=== PATIENT | male | born 1935 | race Caucasian/White ===

== ENCOUNTER 2017-10-03 23:14 | Observation (INO) | payer MEDICARE ==
[2017-10-03] MEDS ORDERED: NS 0.9% 1000 ML*IV.FLUID IV ONE (23:24)
[2017-10-03] MEDS ORDERED: Acetaminophen TAB* 325 MG PO ONE (23:24)
[2017-10-03] MEDS ORDERED: Piperacillin/Tazobac ADVAN(*) 3.375 GM in NS 0.9% 100 ML* 100 ML IVPB ONE (23:27)
[2017-10-03] MEDS ORDERED: Ibuprofen TAB* 800 MG PO ONE (23:35)
[2017-10-03 23:48] LABS: ABS Basophils 0 10^3/ul (0-0.2); ABS Eosinophils 0 10^3/ul (0-0.6); ABS Lymphocytes 0.8 10^3/ul (1.0-4.8); ABS Monocytes 1.1 10^3/ul (0-0.8); ABS Neutrophils 11.4 10^3/ul (1.5-7.7); ABS Nucleated RBC 0 10^3/ul; Eosinophil % 0.2 % (0-6); Hematocrit 42 % (42-52); Lymphocyte % 6.3 % (25-47); Mean Corpuscular HGB Conc 34 g/dl (31-36); Mean Corpuscular Hemoglobin 32 pg (27-31); Mean Corpuscular Volume 94 fL (80-94); Mean Platelet Volume 7.7 um3 (7.4-10.4); Nucleated Red Blood Cells % 0.1; Platelet Count 154 10^3/ul (150-450); Red Blood Count 4.42 10^6/ul (4.00-5.40); Red Cell Distribution Width 14 % (10.5-15); White Blood Count 13.4 10^3/ul (3.5-10.8)
[2017-10-04 00:03] LABS: EGFR Non-African American 75.9 (>60); INR 1.09 (0.77-1.02)
--- NOTE | 2017-10-04 00:14 | ED ---
HPI Febrile Illness - HPI Summary HPI Summary: This is scribe Anuel Johnston documenting for attending Dr. Gustabo Ramirez. This patient is an 82 year old M presenting to [facility] accompanied by his with a chief complaint of febrile illness since this AM but worse by 2200. PMHx dementia, all history obtained from his . Pt hasnt had fever up until he started experiencing the chills/shivering at 2200, when he lay in bed. Pt was lethargic all day, but this was not seen as too concerning early on, as some days he is more active than others. His blood pressure was checked by his and was okay, as was his temperature. She noted she forced fluids. When he went to bed at 2200 he was shaking all over, he did cough with a little rattle after it got bad. They endorse incontinence, chills/shivering, new onset fever, productive cough, bilateral pitting pedal edema, lethargy, and weakness (much worse after 2200). PMHx BPH, cellulitis, HTN, PE tubes, but denies PMHx other heart problems. They deny urinary retention, emesis, and loss of appetite. PMHx cellulitis. Pts endorses that she gave him 2 extra strength Tylenol (1000 mg) at 2200. I, Dr. Montejo personally performed the services described in this documentation as scribed in my presence and it is both accurate and complete. - History of Current Complaint Chief Complaint: EDFever Time Seen by Provider: 10/03/17 23:22 Hx Obtained From: Family/Cut In Station Operator - Onset/Duration: Started Hours Ago, Still Present, Worse Since - 2200 Timing: Constant, Lasting Hours Initial Severity: Mild Current Severity: Moderate Pain Intensity: 0 Pain Scale Used: 0-10 Numeric Aggravating Factors: Nothing Alleviating Factors: Nothing Associated Signs and Symptoms: Chills, Cough, Leg Swelling, Weakness, Other: - lethargy - Additional Pertinent History Primary Care Physician: [id number] - Allergy/Home Medications Allergies/Adverse Reactions: Allergies Allergy/AdvReac Type Severity Reaction Status Date / Time MS Donepezil [Donepezil] Allergy Rash Verified 11/02/13 08:40 MS Losartan [Losartan] Allergy Swelling Verified 08/31/15 11:46 Of Face,Lips,& Throat PMH/Surg Hx/FS Hx/Imm Hx Endocrine/Hematology History: Denies: Hx Diabetes, Hx Sickle Cell Disease, Hx Thyroid Disease Cardiovascular History: Reports: Hx Hypertension - ON MEDICATION TO CONTROL Respiratory History: Reports: Hx Seasonal Allergies Denies: Hx Asthma, Hx Chronic Obstructive Pulmonary Disease (COPD), Hx Pneumonia GI History: Reports: Hx Hiatal Hernia Denies: Hx Gastroesophageal Reflux Disease, Hx Ulcer History: Reports: Hx Benign Prostatic Hyperplasia Musculoskeletal History: Reports: Hx Arthritis - HANDS & LEGS Denies: Hx Osteoporosis Sensory History: Reports: Hx Contacts or Glasses, Hx Hearing Problem - Getting hearing aides in August, fluid in ears getting tubes placed Denies: Hx Cataracts, Hx Glaucoma, Hx Hearing Aid Opthamlomology History: Reports: Hx Contacts or Glasses Denies: Hx Cataracts, Hx Glaucoma Neurological History: Reports: Hx Dementia Psychiatric History: Denies: Hx Autism, Hx Schizophrenia - Cancer History Cancer Type, Location and Year: Melanoma on back 1989, 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 APPY A CHILD. UMBILICAL HERNIA- [facility] [place]. ARTHROSCOPIC LEFT KNEE--[facility] [place]. CYST REMOVED FROM LEFT TESTICLE 2002-[facility] [place]. RIGHT HEEL 2007 [facility] [place] Hx Anesthesia Reactions: No Infectious Disease History: No Infectious Disease History: Denies: Hx Hepatitis, Hx Human Immunodeficiency Virus (HIV), Traveled Outside the in Last 30 Days - Family History Known Family History: Positive: Hypertension, Other - lung cancer - Social History Occupation: Retired Lives: With Family - Alcohol Use: Daily Alcohol Amount: 2 shots of whiskey mixed with water Hx Substance Use: No Substance Use Type: Reports: None Hx Tobacco Use: Yes Smoking Status (MU): Former Smoker Type: Pipe Review of Systems Positive: Fever, Chills, Fatigue Positive: Cough Negative: Vomiting, Nausea Positive: incontinence. Negative: other - retention Positive: Edema - bilateral pedal pitting Positive: Other - flushed Positive: Weakness All Other Systems Reviewed And Are Negative: Yes Physical Exam - Summary Physical Exam Summary: VITAL SIGNS: Reviewed. GENERAL: Patient is a well-developed and nourished male who is lying comfortable in the stretcher. Patient is not in any acute respiratory distress. Flushed skin HEAD AND FACE: No signs of trauma. No ecchymosis, hematomas or skull depressions. No sinus tenderness. EYES: PERRLA, EOMI x 2, No injected conjunctiva, no nystagmus. EARS: Hearing grossly intact. Ear canals and tympanic membranes are within normal limits. MOUTH: Oropharynx within normal limits. NECK: Supple, trachea is midline, no adenopathy, no JVD, no carotid bruit, no c- spine tenderness, neck with full ROM. CHEST: Symmetric, no tenderness at palpation LUNGS: Clear to auscultation bilaterally. No wheezing or crackles. CVS: Regular rate and rhythm, S1 and S2 present, no murmurs or gallops appreciated. ABDOMEN: Soft, non-tender. Distended. No rebound, no guarding, and no masses palpated. Bowel sounds are normal. Ventral hernia EXTREMITIES: FROM in all major joints, trace bilateral pitting pedal edema, no cyanosis or clubbing. NEURO: Alert and oriented x 3. No acute neurological deficits. Speech is normal and follows commands. SKIN: Dry and warm, flushed Triage Information Reviewed: Yes Vital Signs On Initial Exam: Initial Vitals Temp Pulse Resp BP Pulse Ox 101.8 F 73 15 141/73 93 10/03/17 23:21 10/03/17 23:21 10/03/17 23:21 10/03/17 23:21 10/03/17 23:21 Vital Signs Reviewed: Yes Diagnostics - Vital Signs Vital Signs Temp Pulse Resp BP Pulse Ox 10/03/17 23:21 101.8 F 73 15 141/73 93 - Laboratory Lab Results: Lab Results 10/03/17 10/03/17 10/03/17 Range/Units 23:40 23:40 23:40 WBC 13.4 H (3.5-10.8) 10^3/ul RBC 4.42 (4.00-5.40) 10^6/ul Hgb 14.0 (14.0-18.0) g/dl Hct 42 (42-52) % MCV 94 (80-94) fL MCH 32 H (27-31) pg MCHC 34 (31-36) g/dl RDW 14 (10.5-15) % Plt Count 154 (150-450) 10^3/ul MPV 7.7 (7.4-10.4) um3 Neut % (Auto) 85.1 H (38-83) % Lymph % (Auto) 6.3 L (25-47) % [place] % (Auto) 8.1 H (0-7) % Eos % (Auto) 0.2 (0-6) % Baso % (Auto) 0.3 (0-2) % Absolute Neuts (auto) 11.4 H (1.5-7.7) 10^3/ul Absolute Lymphs (auto) 0.8 L (1.0-4.8) 10^3/ul Absolute Monos (auto) 1.1 H (0-0.8) 10^3/ul Absolute Eos (auto) 0 (0-0.6) 10^3/ul Absolute Basos (auto) 0 (0-0.2) 10^3/ul Absolute Nucleated RBC 0 10^3/ul Nucleated RBC % 0.1 INR (Anticoag Therapy) 1.09 H (0.77-1.02) APTT 27.6 (26.0-36.3) seconds Sodium 131 L (135-145) mmol/L Potassium 3.9 (3.5-5.0) mmol/L Chloride 101 (101-111) mmol/L Carbon Dioxide 24 (22-32) mmol/L Anion Gap 6 (2-11) mmol/L BUN 26 H (6-24) mg/dL Creatinine 0.95 (0.67-1.17) mg/dL Est GFR ( Amer) 91.8 (>60) Est GFR (Non-Af Amer) 75.9 (>60) BUN/Creatinine Ratio 27.4 H (8-20) Glucose 127 H (70-100) mg/dL Lactic Acid (0.5-2.0) mmol/L Calcium 9.2 (8.6-10.3) mg/dL Total Bilirubin 1.50 H (0.2-1.0) mg/dL AST 13 (13-39) U/L ALT 10 (7-52) U/L Alkaline Phosphatase 55 (34-104) U/L Troponin I 0.01 (<0.04) ng/mL C-Reactive Protein 150.51 H (<8.01) mg/L Total Protein 6.3 L (6.4-8.9) g/dL Albumin 3.7 (3.2-5.2) g/dL Globulin 2.6 (2-4) g/dL Albumin/Globulin Ratio 1.4 (1-3) / Range/Units 23:40 WBC (3.5-10.8) 10^3/ul RBC (4.00-5.40) 10^6/ul Hgb (14.0-18.0) g/dl Hct (42-52) % MCV (80-94) fL MCH (27-31) pg MCHC (31-36) g/dl RDW (10.5-15) % Plt Count (150-450) 10^3/ul MPV (7.4-10.4) um3 Neut % (Auto) (38-83) % Lymph % (Auto) (25-47) % [place] % (Auto) (0-7) % Eos % (Auto) (0-6) % Baso % (Auto) (0-2) % Absolute Neuts (auto) (1.5-7.7) 10^3/ul Absolute Lymphs (auto) (1.0-4.8) 10^3/ul Absolute Monos (auto) (0-0.8) 10^3/ul Absolute Eos (auto) (0-0.6) 10^3/ul Absolute Basos (auto) (0-0.2) 10^3/ul Absolute Nucleated RBC 10^3/ul Nucleated RBC % INR (Anticoag Therapy) (0.77-1.02) APTT (26.0-36.3) seconds Sodium (135-145) mmol/L Potassium (3.5-5.0) mmol/L Chloride (101-111) mmol/L Carbon Dioxide (22-32) mmol/L Anion Gap (2-11) mmol/L BUN (6-24) mg/dL Creatinine (0.67-1.17) mg/dL Est GFR ( Amer) (>60) Est GFR (Non-Af Amer) (>60) BUN/Creatinine Ratio (8-20) Glucose (70-100) mg/dL Lactic Acid 1.0 (0.5-2.0) mmol/L Calcium (8.6-10.3) mg/dL Total Bilirubin (0.2-1.0) mg/dL AST (13-39) U/L ALT (7-52) U/L Alkaline Phosphatase (34-104) U/L Troponin I (<0.04) ng/mL C-Reactive Protein (<8.01) mg/L Total Protein (6.4-8.9) g/dL Albumin (3.2-5.2) g/dL Globulin (2-4) g/dL Albumin/Globulin Ratio (1-3) Result Diagrams: 10/03/17 23:40 10/03/17 23:40 Lab Statement: Any lab studies that have been ordered have been reviewed, and results considered in the medical decision making process. - Radiology CXR Xray Interpretation: No Acute Changes Radiology Interpretation Completed By: ED Physician - No acute process. Course/Dx - Course Course Of Treatment: An 82-year-old M presents to the ED with a CC of febrile illness since this AM. (+) fever, chills, cough, lethargy, weakness. (-) urinary retention, emesis, loss of appetite. PMHx BPH, incontinence, HTN, cellulitis. A CXR reveals ___. An EKG reveals ___. In the ED course, pt was given . Pt was given 1000 mg of Tylenol by his at 2200. - Diagnoses Provider Diagnoses: UTI (urinary tract infection), Sepsis due to urinary tract infection - Provider Notifications Discussed Care Of Patient With: Lucinda Lizarraga Time Discussed With Above Provider: 01:00 Instructed by Provider To: Other - Accepts admission. Discharge - Sign-Out/Discharge Documenting (check all that apply): Patient Departure - admit - Discharge Plan Condition: Stable Disposition: ADMITTED TO [facility] Referrals: Adam Marte MD [Primary Care Provider] - - Billing Disposition and Condition Condition: STABLE Disposition: Admitted to [facility] Attestation Statement User Type: Provider - I, Dr. Montejo personally performed the services described in this documentation as scribed in my presence and it is both accurate and complete.
[2017-10-04 00:22] LABS: Urine Appearance Cloudy; Urine Blood Negative (Negative); Urine Color Yellow; Urine Ketones Negative (Negative); Urine Protein Negative (Negative); Urine Red Blood Cell Absent (Absent); Urine Specific Gravity 1.028 (1.010-1.030); Urine Urobilinogen Negative (Negative); Urine White Blood Cell 1+(6-10/hpf) (Absent)
[2017-10-04] MEDS ORDERED: Acetaminophen TAB* 325 MG PO PRN (01:28)
[2017-10-04] MEDS ORDERED: Senna TAB PO PRN (01:28)
[2017-10-04] MEDS ORDERED: Ondansetron INJ* 2 MG/ML VIAL IV PRN (01:28)
[2017-10-04] MEDS ORDERED: Docusate CAP* 100 MG PO PRN (01:28)
[2017-10-04] MEDS ORDERED: Al Hydrox/Mg Hydrox/Simet LIQ* 30 ML UDC PO PRN (01:28)
[2017-10-04] MEDS: NS 0.9% 1000 ML* 1,000 ML IV SCH ×2 (03:19→08:43)
[2017-10-04 03:30] LABS: ABS Basophils 0.1 10^3/ul (0-0.2); ABS Eosinophils 0 10^3/ul (0-0.6); ABS Lymphocytes 0.9 10^3/ul (1.0-4.8); ABS Monocytes 0.4 10^3/ul (0-0.8); ABS Neutrophils 9.7 10^3/ul (1.5-7.7); ABS Nucleated RBC 0 10^3/ul; Eosinophil % 0.1 % (0-6); Hematocrit 40 % (42-52); Hemoglobin 13.4 g/dl (14.0-18.0); Lymphocyte % 7.8 % (25-47); Mean Corpuscular HGB Conc 34 g/dl (31-36); Mean Corpuscular Hemoglobin 32 pg (27-31); Mean Corpuscular Volume 95 fL (80-94); Mean Platelet Volume 7.9 um3 (7.4-10.4); Nucleated Red Blood Cells % 0; Platelet Count 124 10^3/ul (150-450); Red Blood Count 4.18 10^6/ul (4.00-5.40); Red Cell Distribution Width 14 % (10.5-15); White Blood Count 11.1 10^3/ul (3.5-10.8)
[2017-10-04] MEDS: cefTRIAXone(*) 1 GM in NS 0.9% 50 ML* 50 ML IVPB SCH (05:49)
[2017-10-04] MEDS: Heparin VIAL(*) 5000 UNITS/ML VIAL (FIVE THOUSAND) SUBCUT SCH ×3 (05:51→21:39)
--- NOTE | 2017-10-04 07:15 | RAD ---
INDICATION: Fever. COMPARISON: Comparison is made with a prior chest x-ray study from August 13, 2015. TECHNIQUE: A portable view of the chest was obtained. FINDINGS: The heart appears moderately enlarged and unchanged from the prior exam. The lungs are clear. No pleural effusion is seen. IMPRESSION: NO EVIDENCE FOR ACUTE DISEASE. R0
[2017-10-04] MEDS: Aspirin EC TAB* 81 MG TAB.EC PO SCH (08:44)
--- NOTE | 2017-10-04 08:57 | HP ---
CC: Dr. Marte.* HISTORY AND PHYSICAL: DATE OF ADMISSION: 10/04/17 TIME OF EVALUATION: 0100 PRIMARY CARE PHYSICIAN: Dr. Marte. CHIEF COMPLAINT: Rigors, shaking. HISTORY OF PRESENT ILLNESS: This is an 82-year-old male with past medical history of [id number]-[id number] dementia who presented to the emergency room after having a shaking episode in bed. The gives history as the patient is somnolent and with dementia. She states he was in his usual state of health today, he ate 3 meals. He had had no symptoms. He was a little bit more lethargic throughout the day. This evening he went to bed around 9 p.m., at 10 p.m. she woke up, had him having rigors and he was found to have a temperature when he arrived to the emergency room. states he is not able to complain of pain or express his needs. She denies any vomiting or diarrhea. No coughing. No choking on foods. No sick contact. No recent antibiotic use. He has no recent weight changes. No URI symptoms. Otherwise, review of system is limited. The patient had labs imaging. He was given 3 L of normal saline, Zosyn , and Motrin and referred to the hospital service for further evaluation. PAST MEDICAL HISTORY: 1. Moderate to severe dementia. 2. BPH. 3. Hypertension. 4. History of hiatal hernia. 5. Arthritis. 6. Hard of hearing. MEDICATIONS: 1. Verapamil 360 mg p.o. daily. 2. Galantamine 24 mg p.o. daily. 3. Vitamin B12 1000 mcg p.o. daily. 4. Multivitamin daily. 5. Aspirin 81 mg daily. 6. Spironolactone 12.5 mg p.o. daily. ALLERGIES: DONEPEZIL, LOSARTAN. FAMILY HISTORY: Reviewed, noncontributory. SOCIAL HISTORY: The patient lives at home with his , Tucker, who takes care of him. He does ambulate independently. He is incontinent of urine. He has difficulty with meaningful conversation and unable to express his needs. He does drink 1 to 2 drinks per day about 5 to 6 times a week. He does have a remote smoking history. No illicit drug history. His healthcare proxy is his , Tucker. She had confirmed that he is a DNR/DNI. We will have this filled up this evening. REVIEW OF SYSTEMS: Limited due to patient's dementia and altered mental status. PHYSICAL EXAMINATION GENERAL: The patient is somnolent. He does awake, but minimally responsive as well as respirations. VITAL SIGNS: T-max 101.8, pulse rate 70, respiratory rate 15, oxygen saturation 93% on room air, blood pressure 112/89. HEENT: Head: Normocephalic. Pupils are equal and reactive, anicteric. Oropharynx: Mucous membranes moist. NECK: Supple. RESPIRATORY: Diminished breath sounds. No wheezing, rhonchi, or rales. CARDIAC: Regular rate and rhythm. Soft systolic murmur heard throughout. ABDOMEN: Positive bowel sounds. Soft, nontender, nondistended. EXTREMITIES: No clubbing, cyanosis, or edema. +1 DPs. NEUROLOGIC: The patient is nonverbal, unable to follow commands. He does have spontaneous movement of bilateral lower extremities. LABORATORY DATA: White count 13.4, hemoglobin 14, hematocrit 42, platelets 154 ,000. INR is 1.09. Sodium 131, potassium 3.9, chloride 101, bicarb 24, BUN 26 , creatinine 0.95, glucose 127, troponin 0.01, CRP is 150. Urine shows trace leukocytes white cells, squamous cells and positive bacteria. Chest x-rays were unremarkable. ASSESSMENT: This is an 82-year-old male with past medical history of dementia, benign prostatic hyperplasia who presents to the emergency room after having rigor and found to have fever. 1. Systemic inflammatory response syndrome. Assessment: The patient does meet criteria for systemic inflammatory response syndrome. It is possible the source is his urine shows mild pyuria, does not have any other associated symptoms. He is quite somnolent. Could be a viral illness. Plan: We will continue IV fluids, continue him on antibiotics. We will continue him on ceftriaxone. Follow up on his urine and blood cultures. If he does not clinically improve, would consider lumbar puncture to rule out meningitis. 2. Chronic medical problems, hypertension. The patient's blood pressures are soft, we will hold his verapamil and spironolactone. Continue his aspirin. 3. History of benign prostatic hyperplasia. We will order a bladder scan. He is not on any medications for this. 4. Dementia. Hold his galantamine as it is not on formulary. 5. FEN: Place the patient on a regular diet. 6. DVT prophylaxis: The patient scores high risk. We placed him on heparin subcu t.i.d. 7. Code status: The patient's confirmed that he has a DNR and DNI and we will have the MOLST form completed. TIME SPENT: Greater than 30 minutes was spent doing the history and physical, more than half the time spent in direct patient contact. [id number]/CPS #: [id number] DRAKE
[2017-10-04] MEDS: GALANTAMINE HBR 24 MG PO SCH (13:05)
[2017-10-04] MEDS: Verapamil SR CAP* 180 MG PO SCH (13:06)
[2017-10-04] MEDS: Cyanocobalamin TAB* 500 MCG PO SCH (13:10)
[2017-10-04] MEDS: Spironolactone TAB* 25 MG PO SCH (13:10)
--- NOTE | 2017-10-04 15:01 | PN ---
Subjective Date of Service: 10/04/17 Interval History: Pt has no complaints. Lethargy resolved. See in room with and son. apart for fever , lethargy and rigors-no other symptoms Objective Active Medications: Acetaminophen (Tylenol Tab*) 650 mg PO Q4H PRN PRN Reason: FEVER/PAIN Al Hydrox/Mg Hydrox/Simethicone (Maalox Plus*) 30 ml PO Q6H PRN PRN Reason: INDIGESTION Aspirin (Aspirin Ec Tab*) 81 mg PO DAILY [facility] Last Admin: 10/04/17 08:44 Dose: 81 mg Cyanocobalamin (Vitamin B12 Tab*) 1,000 mcg PO DAILY [facility] Last Admin: 10/04/17 13:10 Dose: 1,000 mcg Docusate Sodium (Colace Cap*) 100 mg PO BID PRN PRN Reason: CONSTIPATION Heparin Sodium (Porcine) (Heparin Vial(*)) 5,000 units SUBCUT Q8HR [facility] Last Admin: 10/04/17 13:11 Dose: 5,000 units Ceftriaxone Sodium 1 gm/ (Sodium Chloride) 50 mls @ 200 mls/hr IVPB Q24H [facility] Last Admin: 10/04/17 05:49 Dose: 200 mls/hr Pto: Nf Galantamine Hbr [Galantamine Er] 24 Mg 24 mg PO DAILY [facility] Last Admin: 10/04/17 13:05 Dose: 24 mg Ondansetron HCl (Zofran Inj*) 4 mg IV Q4H PRN PRN Reason: NAUSEA/VOMITING Senna (Senokot Tab*) 1 tab PO BID PRN PRN Reason: CONSTIPATION Spironolactone (Aldactone Tab*) 12.5 mg PO DAILY [facility] Last Admin: 10/04/17 13:10 Dose: 12.5 mg Verapamil HCl (Calan Sr Cap*) 360 mg PO DAILY [facility] Last Admin: 10/04/17 13:06 Dose: 360 mg Vital Signs - 8 hr 10/04/17 10/04/17 10/04/17 07:22 10:36 10:39 Temperature 97.8 F Pulse Rate 61 Respiratory 16 16 Rate Blood Pressure 127/69 (mmHg) O2 Sat by Pulse 99 99 Oximetry Oxygen Devices in Use Now: None Appearance: 82 yo m in nAD, aAOx2, cannot recall his age, remembers Eyes: No Scleral Icterus, PERRLA Ears/Nose/Mouth/Throat: NL Teeth, Lips, Gums, Mucous Membranes Moist Neck: NL Appearance and Movements; NL JVP, Trachea Midline Respiratory: Symmetrical Chest Expansion and Respiratory Effort, - - faint bibasiliar crackles Cardiovascular: NL Sounds; No Murmurs; No JVD, RRR Abdominal: No Hepatosplenomegaly, - - distended, soft, NT, BS+ Lymphatic: No Cervical Adenopathy Extremities: No Edema, No Clubbing, Cyanosis Skin: No Rash or Ulcers, No Nodules or Sclerosis Neurological: NL Muscle Strength and Tone Result Diagrams: 10/04/17 03:23 10/03/17 23:40 Additional Lab and Data: Lab Results 10/03/17 10/03/17 10/03/17 Range/Units 23:40 23:40 23:40 WBC 13.4 H (3.5-10.8) 10^3/ul RBC 4.42 (4.00-5.40) 10^6/ul Hgb 14.0 (14.0-18.0) g/dl Hct 42 (42-52) % MCV 94 (80-94) fL MCH 32 H (27-31) pg MCHC 34 (31-36) g/dl RDW 14 (10.5-15) % Plt Count 154 (150-450) 10^3/ul MPV 7.7 (7.4-10.4) um3 Neut % (Auto) 85.1 H (38-83) % Lymph % (Auto) 6.3 L (25-47) % [place] % (Auto) 8.1 H (0-7) % Eos % (Auto) 0.2 (0-6) % Baso % (Auto) 0.3 (0-2) % Absolute Neuts (auto) 11.4 H (1.5-7.7) 10^3/ul Absolute Lymphs (auto) 0.8 L (1.0-4.8) 10^3/ul Absolute Monos (auto) 1.1 H (0-0.8) 10^3/ul Absolute Eos (auto) 0 (0-0.6) 10^3/ul Absolute Basos (auto) 0 (0-0.2) 10^3/ul Absolute Nucleated RBC 0 10^3/ul Nucleated RBC % 0.1 INR (Anticoag Therapy) 1.09 H (0.77-1.02) APTT 27.6 (26.0-36.3) seconds Sodium 131 L (135-145) mmol/L Potassium 3.9 (3.5-5.0) mmol/L Chloride 101 (101-111) mmol/L Carbon Dioxide 24 (22-32) mmol/L Anion Gap 6 (2-11) mmol/L BUN 26 H (6-24) mg/dL Creatinine 0.95 (0.67-1.17) mg/dL Est GFR ( Amer) 91.8 (>60) Est GFR (Non-Af Amer) 75.9 (>60) BUN/Creatinine Ratio 27.4 H (8-20) Glucose 127 H (70-100) mg/dL Lactic Acid (0.5-2.0) mmol/L Calcium 9.2 (8.6-10.3) mg/dL Total Bilirubin 1.50 H (0.2-1.0) mg/dL AST 13 (13-39) U/L ALT 10 (7-52) U/L Alkaline Phosphatase 55 (34-104) U/L Troponin I 0.01 (<0.04) ng/mL C-Reactive Protein 150.51 H (<8.01) mg/L Total Protein 6.3 L (6.4-8.9) g/dL Albumin 3.7 (3.2-5.2) g/dL Globulin 2.6 (2-4) g/dL Albumin/Globulin Ratio 1.4 (1-3) 10/03/17 Range/Units 23:40 WBC (3.5-10.8) 10^3/ul RBC (4.00-5.40) 10^6/ul Hgb (14.0-18.0) g/dl Hct (42-52) % MCV (80-94) fL MCH (27-31) pg MCHC (31-36) g/dl RDW (10.5-15) % Plt Count (150-450) 10^3/ul MPV (7.4-10.4) um3 Neut % (Auto) (38-83) % Lymph % (Auto) (25-47) % [place] % (Auto) (0-7) % Eos % (Auto) (0-6) % Baso % (Auto) (0-2) % Absolute Neuts (auto) (1.5-7.7) 10^3/ul Absolute Lymphs (auto) (1.0-4.8) 10^3/ul Absolute Monos (auto) (0-0.8) 10^3/ul Absolute Eos (auto) (0-0.6) 10^3/ul Absolute Basos (auto) (0-0.2) 10^3/ul Absolute Nucleated RBC 10^3/ul Nucleated RBC % INR (Anticoag Therapy) (0.77-1.02) APTT (26.0-36.3) seconds Sodium (135-145) mmol/L Potassium (3.5-5.0) mmol/L Chloride (101-111) mmol/L Carbon Dioxide (22-32) mmol/L Anion Gap (2-11) mmol/L BUN (6-24) mg/dL Creatinine (0.67-1.17) mg/dL Est GFR ( Amer) (>60) Est GFR (Non-Af Amer) (>60) BUN/Creatinine Ratio (8-20) Glucose (70-100) mg/dL Lactic Acid 1.0 (0.5-2.0) mmol/L Calcium (8.6-10.3) mg/dL Total Bilirubin (0.2-1.0) mg/dL AST (13-39) U/L ALT (7-52) U/L Alkaline Phosphatase (34-104) U/L Troponin I (<0.04) ng/mL C-Reactive Protein (<8.01) mg/L Total Protein (6.4-8.9) g/dL Albumin (3.2-5.2) g/dL Globulin (2-4) g/dL Albumin/Globulin Ratio (1-3) Microbiology and Other Data: Microbiology 10/03/17 23:40 Aerobic Blood Culture - Final Blood Venous Not Reportable Anaerobic Blood Culture - Final Not Reportable 10/03/17 23:46 Aerobic Blood Culture - Final Blood Venous Not Reportable Anaerobic Blood Culture - Final Not Reportable Assess/Plan/Problems-Billing Assessment: 82 yo M with fever and rigors-no source of infection - Patient Problems (1) SIRS (systemic inflammatory response syndrome) Comment: so farno source of infection identified. Awaiting cx, cont empiric Ceftriaxone (2) Dementia Comment: Continue galantamine (3) Hypertension Comment: Continue Verapamil, aldactone (4) DVT prophylaxis Comment: HSQ Status and Disposition: inpatient
[2017-10-04] MEDS ORDERED: LORazepam TAB(*) 1 MG PO ONE (20:52)
[2017-10-05] MEDS: Heparin VIAL(*) 5000 UNITS/ML VIAL (FIVE THOUSAND) SUBCUT SCH (05:39)
[2017-10-05] MEDS: cefTRIAXone(*) 1 GM in NS 0.9% 50 ML* 50 ML IVPB SCH (05:39)
[2017-10-05 07:07] LABS: ABS Basophils 0 10^3/ul (0-0.2); ABS Eosinophils 0.1 10^3/ul (0-0.6); ABS Lymphocytes 1.2 10^3/ul (1.0-4.8); ABS Monocytes 0.8 10^3/ul (0-0.8); ABS Neutrophils 6.2 10^3/ul (1.5-7.7); ABS Nucleated RBC 0 10^3/ul; Eosinophil % 1.5 % (0-6); Hematocrit 38 % (42-52); Lymphocyte % 14.8 % (25-47); Mean Corpuscular HGB Conc 34 g/dl (31-36); Mean Corpuscular Hemoglobin 32 pg (27-31); Mean Corpuscular Volume 95 fL (80-94); Nucleated Red Blood Cells % 0; Platelet Count 132 10^3/ul (150-450); Red Blood Count 4.04 10^6/ul (4.00-5.40); Red Cell Distribution Width 14 % (10.5-15); White Blood Count 8.4 10^3/ul (3.5-10.8)
[2017-10-05 07:37] LABS: EGFR Non-African American 88.7 (>60)
[2017-10-05] MEDS: Verapamil SR CAP* 180 MG PO SCH (10:12)
[2017-10-05] MEDS: GALANTAMINE HBR 24 MG PO SCH (10:12)
[2017-10-05] MEDS: Cyanocobalamin TAB* 500 MCG PO SCH (10:12)
[2017-10-05] MEDS: Spironolactone TAB* 25 MG PO SCH (10:13)
[2017-10-05] MEDS: Aspirin EC TAB* 81 MG TAB.EC PO SCH (10:13)
[2017-10-05 12:17] VITALS: BP 144/59
--- NOTE | 2017-10-05 22:38 | DS ---
CC: Dr. Marte.* DISCHARGE SUMMARY: DATE OF ADMISSION: 10/04/17 DATE OF DISCHARGE: 10/05/17 PRIMARY CARE PROVIDER: Dr. Marte. DISCHARGE DIAGNOSES: 1. Systemic inflammatory response syndrome. 2. Possible urinary tract infection. SECONDARY DIAGNOSES: 1. History of dementia. 2. History of hypertension. 3. History of benign prostatic hyperplasia. MEDICATIONS AT DISCHARGE: Include: 1. Aspirin 81 mg daily. 2. Galantamine ER 24 mg daily. 3. Multivitamin 1 tablet daily. 4. Spironolactone 12.5 mg daily. 5. Verapamil SR 360 mg daily. 6. Vitamin B12 1000 mcg daily. 7. Cefdinir 300 mg p.o. b.i.d. for a total of 5 days and stop. LABORATORY DATA AND STUDIES PERFORMED DURING HOSPITAL STAY: Included: On 10/05/17, white blood cell count of 8.4, hemoglobin of 13.0, hematocrit of 38 , and platelets of 132. Sodium was 135, potassium 4.0, chloride 106, carbon dioxide 25, BUN 16, creatinine 0.83. The patient's C-reactive protein was 150 and 206 respectively. Urinalysis showed trace esterase, trace WBCs, +1 bacteria. Urine cultures are pending at the time of dictation. Blood cultures were obtained at admission and they were negative up to the time of discharge. Portable chest x-ray, impression, "no evidence of recurrent disease." HOSPITALIZATION COURSE: Courtney Wright is an 82-year-old male who is a poor historian due to his dementia who lives with his who is a registered nurse. The patient's noted that the patient had rigors on the night of . He also was more lethargic. He came into the hospital for evaluation. Here he was noted to be febrile with leukocytosis, meeting SIRS criteria without an obvious source of infection. The patient's urinalysis was questionable for infection and urine cultures were obtained and they are still pending at the time of this dictation. The patient was placed on empiric ceftriaxone treatment and his leukocytosis resolved. He had been afebrile for 24 hours and his mental status is up to baseline. He was slightly confused and agitated than last night, but today, once again he is back to his baseline. I discussed with patient's that the option is for the patient to stay another night to see if the urine cultures come back or to be empirically treated for possible UTI and be discharged home today. At this point, it seems more beneficial for the patient to go home due to his dementia, he does get sundowning every night. He is going to be discharged home with recommendation to follow up with his primary care provider in 7 days. PHYSICAL EXAM AT THE TIME OF DISCHARGE: Blood pressure 136/65, heart rate of 66 and regular, respiratory rate 19, oxygen saturation 95% on room air, temperature 97.4. General: The patient is a pleasant 82-year-old male who is in no acute distress. The patient is alert and oriented. He is oriented x2. He is able to tell me his date of , but not his age. He does not remember today's date, he is able to tell me the location. He is overall a poor historian. HEENT: Head: Atraumatic, normocephalic. Eyes: Pupils are equal, reactive to light and accommodation. Oropharynx is clear. Mucosa moist. Neck : Supple. No JVD. No bruits bilaterally. Cardiovascular: Regular rate and rhythm. No murmur. Respiratory: Clear to auscultation bilaterally. Abdomen: Soft, nontender, nondistended. Bowel sounds are present in all 4 quadrants. Extremities: There is trace bilateral pedal edema. Pulses are +2 bilaterally. There is no clubbing or cyanosis. Neuro Evaluation: Speech clear. Cranial nerves II through XII grossly intact. Motor strength is 5/5 bilaterally. Evaluation of the skin, no ecchymotic areas or rashes noted. The patient is going to be discharged home to follow up with his primary care provider as mentioned above. Please note that this is a short summary of the patient's hospitalization. Please refer to further medical records for details. TIME SPENT: Approximately 35 minutes was spent on the patient's discharge. [id number]/[facility] #: [id number] DRAKE
== END 2017-10-05 12:30 | disposition home or self-care (01) ==
LOC: ED 23:14 → MED 10-04 01:26 → INTOOBSV 10-04 01:26
PROVIDERS: ADMIT Pediatrics; ATTEND Internal Medicine
DX: R65.11 Systemic inflammatory response syndrome (SIRS) of non-infectious origin with acute organ dysfunction (principal); F03.90 Unspecified dementia, unspecified severity, without behavioral disturbance, psychotic disturbance, mood disturbance, and anxiety; Z86.79 Personal history of other diseases of the circulatory system; Z87.438 Personal history of other diseases of male genital organs; Z79.82 Long term (current) use of aspirin; R05 Cough; Z87.891 Personal history of nicotine dependence
CPT/HCPCS: 36415; 71045; 80048; 80053; 81003; 81015; 83605; 84484; 85025; 85610; 85730; 86140; 87040; 87077; 87086; 87186; 99285; A9270-GY; G0378; J0696; J1644; J2543

== ENCOUNTER 2018-11-07 21:08 | Inpatient (IN) | payer MEDICARE ==
--- NOTE | 2018-11-07 22:06 | ED ---
Upper Extremity Pain - HPI Summary HPI Summary: 83 year old M presenting to [facility] accompanied by daughter and with a chief complaint of right shoulder pain rated 3/10 in severity since getting up from his recliner, losing his balance while standing, and falling over on to his right side on the linoleum floor, hitting the right side of his head, nose, and right shoulder per this evening. reports epistaxis. denies LOC. states patient was able to ambulate after the fall. states she iced patient's right eye. Symptoms aggravated by nothing. Symptoms alleviated by nothing. states that patient has hx dementia. states that patient is not taking blood thinners. states that patient does not fall frequently. Medications reviewed. Allergies noted. - History of Current Complaint Chief Complaint: EDFall Stated Complaint: FALL/RT ARM INJURY PER Time Seen by Provider: 11/07/18 21:54 Hx Obtained From: Family/Conveyor Mechanic - Mechanism Of Injury: Other - getting up from his recliner, losing his balance while standing, and falling over on to his right side on the linoleum floor, hitting the right side of his head, nose, and right shoulder Onset/Duration: Started Hours Ago, Still Present Timing: Constant Severity Currently: Mild - 3/10 Pain Location: Shoulder - right Aggravating Factor(s): Nothing Alleviating Factor(s): Nothing Associated Signs & Symptoms: Positive: Negative - LOC, Other - epistaxis - Allergies/Home Medications Allergies/Adverse Reactions: Allergies Allergy/AdvReac Type Severity Reaction Status Date / Time donepezil Allergy Rash Verified 10/04/17 01:43 losartan Allergy Swelling Verified 10/04/17 01:43 Of Face,Lips,& Throat Home Medications: Home Medications Multivitamins/Minerals TAB* [Theragran/minerals TAB*] 1 tab PO DAILY 11/07/18 [ History Confirmed 11/07/18] Verapamil SR CAP* [Calan Sr CAP*] 360 mg PO EVERY OTHER DAY 11/07/18 [History Confirmed 11/07/18] PMH/Surg Hx/FS Hx/Imm Hx Endocrine/Hematology History: Denies: Hx Diabetes, Hx Sickle Cell Disease, Hx Thyroid Disease Cardiovascular History: Reports: Hx Hypertension - ON MEDICATION TO CONTROL Respiratory History: Reports: Hx Seasonal Allergies Denies: Hx Asthma, Hx Chronic Obstructive Pulmonary Disease (COPD), Hx Pneumonia GI History: Reports: Hx Hiatal Hernia Denies: Hx Gastroesophageal Reflux Disease, Hx Ulcer History: Reports: Hx Benign Prostatic Hyperplasia Musculoskeletal History: Reports: Hx Arthritis - HANDS & LEGS Denies: Hx Osteoporosis Sensory History: Reports: Hx Contacts or Glasses, Hx Hearing Problem Denies: Hx Cataracts, Hx Glaucoma, Hx Hearing Aid Opthamlomology History: Reports: Hx Contacts or Glasses Denies: Hx Cataracts, Hx Glaucoma Neurological History: Reports: Hx Dementia Psychiatric History: Denies: Hx Autism, Hx Schizophrenia - Cancer History Cancer Type, Location and Year: Melanoma on back 1989, 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 APPY A CHILD. UMBILICAL HERNIA- [facility]. ARTHROSCOPIC LEFT KNEE--[facility]. CYST REMOVED FROM LEFT TESTICLE 2002-[facility] RIGHT HEEL 2007 [facility] Hx Anesthesia Reactions: No Infectious Disease History: No Infectious Disease History: Denies: Hx Hepatitis, Hx Human Immunodeficiency Virus (HIV), Traveled Outside the [place] in Last 30 Days - Family History Known Family History: Positive: Hypertension, Other - lung cancer - Social History Alcohol Use: Rare Alcohol Amount: 2 shots of whiskey mixed with water Substance Use Type: Reports: None Hx Tobacco Use: Yes Smoking Status (MU): Former Smoker Type: Pipe Review of Systems Positive: Epistaxis Positive: Other - right shoulder pain Neurological: Negative - LOC All Other Systems Reviewed And Are Negative: Yes Physical Exam - Summary Physical Exam Summary: Constitutional: Well-developed, Well-nourished, Alert. (-) Distressed Skin: Warm, Dry HENT: Patient has hematoma to right forehead, nose is deviated to the left, no septal hematoma, dried blood in bilateral nares Eyes: Conjunctiva normal Neck: Musculoskeletal ROM normal neck. (-) JVD, (-) Stridor, (-) Tracheal deviation Cardio: Rhythm regular, rate normal, Heart sounds normal; Intact distal pulses; The pedal pulses are 2+ and symmetric. Radial pulses are 2+ and symmetric. (-) Murmur Pulmonary/Chest wall: Effort normal. (-) Respiratory distress, (-) Wheezes, (-) Rales Abd: Soft, (-) tenderness, (-) Distension, (-) Guarding, (-) Rebound Musculoskeletal: Right shoulder is swollen, tender, radial pulses 2+, patient is able to move his right hand Lymph: (-) Cervical adenopathy Neuro: Patient only says yes when asked any questions Psych: Mood and affect Normal GCS: 15 Triage Information Reviewed: Yes Vital Signs On Initial Exam: Initial Vitals Temp Pulse Resp BP Pulse Ox 97.5 F 49 18 139/89 97 11/07/18 21:09 11/07/18 21:09 11/07/18 21:09 11/07/18 21:09 11/07/18 21:09 Vital Signs Reviewed: Yes Diagnostics - Vital Signs Vital Signs Temp Pulse Resp BP Pulse Ox 11/07/18 21:09 97.5 F 49 18 139/89 97 - Laboratory Result Diagrams: 11/08/18 03:22 11/08/18 03:22 Lab Statement: Any lab studies that have been ordered have been reviewed, and results considered in the medical decision making process. - Radiology Right shoulder x-ray Radiology Interpretation Completed By: ED Physician Summary of Radiographic Findings: humeral head fracture. pending official report Right humerus x-ray Radiology Interpretation Completed By: ED Physician Summary of Radiographic Findings: humeral head fracture. pending official report - CT CT Brain CT Interpretation Completed By: Radiologist Summary of CT Findings: 1. Frontal subcutaneous contusion/hematoma. No traumatic intracranial abnormalities. 2. Age-related atrophy and mild chronic small vessel ischemic disease. CT Cervical spine CT Interpretation Completed By: Radiologist Summary of CT Findings: 1. No cervical spine traumatic abnormalities. 2. Mild multilevel cervical spondylopathy. ED physician has reviewed this report. CT Maxillofacial CT Interpretation Completed By: Radiologist Summary of CT Findings: Right frontal contusion/hematoma. No facial bone fractures. ED physician has reviewed this report. Course/Dx - Course Course Of Treatment: Patient is here after mechanical fall. Patient has swelling of the right shoulder with a suspected humerus fracture on x-ray. Patient had negative CT head, cervical spine, maxillofacial. Patient was at home with his elderly who cannot take care of him tonight. Patient is admitted for placement. Orthopedic surgery was called and made aware patient. - Diagnoses Provider Diagnoses: Fall, Dementia, Humerus fracture - Physician Notifications Discussed Care of Patient With: Gabriel Elizabeth Time Discussed With Above Provider: 00:40 Instructed by Provider To: Other - Dr. Elizabeth, orthopedics, recommends admission to the hospitalist. Spoke with Dr. Stauffer, hospitalist, at 01:00 who agrees to admit patient Discharge ED - Sign-Out/Discharge Documenting (check all that apply): Patient Departure - Admit Patient Received Moderate/Deep Sedation with Procedure: No - Discharge Plan Condition: Stable Disposition: ADMITTED TO [facility] - Billing Disposition and Condition Condition: STABLE Disposition: Admitted to [facility] - Attestation Statements Document Initiated by Fortinoibe: Yes Documenting Scribe: Paulina Liao Provider For Whom Norma is Documenting (Include Credential): Jluis Quispe MD Scribe Attestation: IPaulina, scribed for Jluis Quispe MD on 11/08/18 at 0351. Scribe Documentation Reviewed: Yes Provider Attestation: The documentation as recorded by the scribe, Paulina Liao accurately reflects the service I personally performed and the decisions made by me, Jluis Quispe MD Status of Scribe Document: Viewed
[2018-11-08] MEDS ORDERED: Acetaminophen TAB* 325 MG PO ONE (01:36)
[2018-11-08 03:44] LABS: Albumin 3.7 g/dL (3.2-5.2); CO2 Carbon Dioxide 23 mmol/L (22-32); Calcium 9.1 mg/dL (8.6-10.3); Chloride 104 mmol/L (101-111); Sodium 132 mmol/L (135-145)
[2018-11-08 03:47] LABS: Hematocrit 43 % (42-52); Hemoglobin 14.5 g/dL (14.0-18.0); Mean Corpuscular HGB Conc 33 g/dL (31-36); Mean Corpuscular Hemoglobin 32 pg (27-31); Mean Corpuscular Volume 95 fL (80-94); Red Blood Count 4.57 10^6 /uL (4.18-5.48); Red Cell Distribution Width 15 % (10-15)
[2018-11-08 03:50] LABS: ALT 12 U/L (7-52); Albumin/Globulin Ratio 1.5 (1-3); Alkaline Phosphatase 57 U/L (34-104); BUN/Creatinine Ratio 22.8 (8-20); Blood Urea Nitrogen 23 mg/dL (6-24); EGFR African American 85.4 (>60); EGFR Non-African American 70.5 (>60); Globulin 2.5 g/dL (2-4); Glucose 132 mg/dL (70-100); Total Protein 6.2 g/dL (6.4-8.9)
[2018-11-08 03:51] LABS: Anion Gap 5 mmol/L (2-11)
[2018-11-08 04:04] LABS: ABS Lymphocytes 1.5 10^3/ul (1.0-4.8); ABS Monocytes 0.8 10^3/ul (0-0.8); ABS Neutrophils 6.5 10^3/ul (1.5-7.7); Eosinophil % 0.6 %; Lymphocyte % 17.3 %; Platelet Count Platelets clumped. 10^3/uL (150-450); White Blood Count 8.9 10^3/uL (3.5-10.8)
[2018-11-08] MEDS: NS 0.9% 1000 ML** 1,000 ML IV SCH ×2 (04:35→20:11)
--- NOTE | 2018-11-08 05:41 | HP ---
CC: Dr. Karol Jorge; Dr. Gabriel Elizabeth * ADMISSION HISTORY AND PHYSICAL: DATE OF ADMISSION: 11/08/18 PRIMARY CARE PROVIDER: Karol Jorge MD. CHIEF COMPLAINT: Fall. HISTORY OF PRESENT ILLNESS: This is an 83-year-old male with a past medical history of advanced dementia, who is nonverbal for most part, history of BPH and now has urinary incontinence, history of hypertension, came in due to a fall. The patient was in usual state of health up until yesterday evening at 8 p.m. when he was trying to get out of his recliner and go to his bed, his straightened the recliner but when he got up, he lost his balance, he tried to brace his impact but unfortunately fell on his right side and had severe right shoulder pain and was brought into the ER. According to the , who was present at the bedside, there was never any loss of consciousness. The patient himself could not answer further questions as he is nonverbal and mostly said yes to almost every question asked. PAST MEDICAL HISTORY: As mentioned advanced dementia, benign prostatic hypertrophy with urinary incontinence, hypertension, history of hiatal hernia, arthritis, severely hard of hearing. PAST SURGICAL HISTORY: He has had appendectomy, umbilical hernia repair, left testicular cyst removal, right heel fracture in 2007 which was repaired. HOME MEDICATIONS: The patient is on: 1. Multivitamin. 2. Spironolactone 12.5 mg oral daily. 3. Vitamin B12 2000 mcg p.o. daily. 4. Verapamil 360 mg p.o. every other day. 5. Triamcinolone topical p.r.n. antifungal cream. 6. Terbinafine topical p.r.n. 7. Galantamine 24 mg oral daily. 8. Vitamin D 1000 mg oral daily. ALLERGIES: The patient is documented to have allergies to DONEPEZIL and LOSARTAN. FAMILY HISTORY: Noncontributory at the age of 83. SOCIAL HISTORY: Former smoker, quit many years ago. Lives with his who is his health care proxy. The patient already has DNR/DNI paper signed from previous admission which the says that he is still DNR/DNI. REVIEW OF SYSTEMS: Unable to obtain as the patient is nonverbal and demented. PHYSICAL EXAMINATION GENERAL: The patient is awake, unclear about his orientation as he kept saying yes to everything. VITAL SIGNS: BP was noted to be 118/63, heart rate 70, respiratory rate 19, saturating 94% on room air, temperature was documented 97.5. HEENT: Head and neck examination: The patient did have some redness in his nose and abrasion from the fall. He had some facial erythema. Pupils bilaterally reactive. Oral mucosa was dry. NECK: Supple. No jugular venous distention. LUNGS: Clear to auscultation bilaterally. No wheezes, rhonchi, or rales. HEART: S1, S2. Regular rate and rhythm. ABDOMEN: Obese with umbilical hernia with positive bowel sounds. EXTREMITIES: The patient did have swelling in the right shoulder, which was in a sling, and some tenderness around that same shoulder. Otherwise, no cyanosis or clubbing and no edema in the lower extremities. LABORATORY DATA: Labs are still pending. EKG showed first-degree AV block with sinus bradycardia at 31 beats per minute. When compared to his older EKG from April, he still had first-degree AV block even at that time with sinus bradyarrhythmia. CT brain showed frontal subcutaneous hematoma, no contusion, no traumatic intracranial abnormality. Age related atrophy and mild chronic small vessel ischemic changes. Cervical spine CT: No cervical spine traumatic abnormality. Multilevel spondylopathy was noted. Maxillofacial CT: Right frontal contusion/hematoma. No facial bone fractures were noted. Shoulder x-ray was read by the ER physician as right humeral neck fracture, official read by radiologist is still pending. IMPRESSION: This is an 83-year-old gentleman with advanced dementia, here with fall, noted to have right humeral neck fracture. Orthopedic was consulted by the ER physician who will evaluate the patient in the morning. ASSESSMENT AND PLAN: 1. Mechanical fall with right humeral neck fracture. We consult with Ortho regarding any surgical treatment. The patient may need rehabilitation; however , wants to take the patient home if she can but understands that if the patient is not very mobile, he might need some rehabilitation prior to going home. 2. History of hypertension. Restart home medications with holding parameters. 3. History of benign prostatic hypertrophy. 4. History of advanced dementia. 5. Prolonged PA interval. We will consider holding the verapamil for now. 6. DVT prophylaxis with subcu heparin. 7. Code status: The patient is DNR. is the health care proxy. [id number]/[facility] #: [id number] DRAKE
[2018-11-08 06:44] LABS: Platelet Count 184 10^3/uL (150-450)
[2018-11-08 06:56] LABS: Potassium Redraw 4.4 mmol/L (3.5-5.0)
[2018-11-08] MEDS ORDERED: GALANTAMINE 8 MG PO SCH (09:00)
[2018-11-08] MEDS ORDERED: Ketorolac INJ* 15 MG/ML 1 ML VIAL IV PUSH ONE ×2 (09:53→19:42)
[2018-11-08] MEDS: Heparin VIAL(*) 5000 UNITS/ML VIAL (FIVE THOUSAND) SUBCUT SCH ×2 (09:56→20:10)
--- NOTE | 2018-11-08 10:13 | PN ---
Progress Note - Progress Note Date of Service: 11/08/18 Note: See full dictated report for complete details. Xrays reviewed with Dr Elizabeth, nonsurgical humerus fracture and much of this injury may be chronic rather than acute. Okay to be NWB, no shoulder ROM in a sling. Okay to move elbow, wrist and digits as tolerated. Mobilize as tolerated. May resume his regular diet.
[2018-11-08] MEDS: Cyanocobalamin TAB* 500 MCG PO SCH (11:21)
[2018-11-08] MEDS: Multivitamins/Minerals TAB PO SCH (11:21)
[2018-11-08] MEDS: Spironolactone TAB* 25 MG PO SCH (11:22)
[2018-11-08] MEDS: Cholecalciferol TAB* 1000 UNITS PO SCH (11:23)
--- NOTE | 2018-11-08 11:48 | CONS ---
CONSULTATION REPORT: DATE OF CONSULT: 11/08/18 ATTENDING ORTHOPEDIC PROVIDER: Dr. Gabriel Elizabeth. PRIMARY CARE PROVIDER: Karol Jorge MD CHIEF COMPLAINT: Fall with right humerus fracture. HISTORY OF PRESENT ILLNESS: The patient is an 83-year-old male with past medical history of advanced dementia, who is mostly nonverbal. He has history of BPH with urinary incontinence, history of hypertension. The patient suffered a fall when he was trying to get out of his recliner to bed yesterday on 11/07/18 around 8 p.m. The patient fell directly on to his right side. He had immediate severe right shoulder pain and was brought into the emergency room. He did hit his head, there was no loss of consciousness. The patient answers yes to all questions. His and daughter were in the room today to help with history. PAST MEDICAL HISTORY: Advanced dementia, BPH, hypertension, hiatal hernia, hard of hearing. PAST SURGICAL HISTORY: Appendectomy, umbilical hernia repair, left testicular cyst removal, right heel fracture. HOME MEDICATIONS: 1. Multivitamin. 2. Spironolactone 12.5 mg daily. 3. Vitamin B12 2000 mcg daily. 4. Verapamil 360 mg every other day. 5. Triamcinolone topical p.r.n. antifungal cream. 6. Terbinafine topical p.r.n. 7. Galantamine 24 mg daily. 8. Vitamin D3 1000 mg daily. ALLERGIES: DONEPEZIL and LOSARTAN. FAMILY HISTORY: Noncontributory for this condition. SOCIAL HISTORY: The patient lives with his who takes care of him at home. He also has respite day care service 2 days a week from the [place]. REVIEW OF SYSTEMS: Not obtained as the patient answers yes to all questions. PHYSICAL EXAM: Vital Signs: Temperature 97.6, pulse rate 72, respiratory rate 18, oxygen saturation 96%, blood pressure 127/60. General: The patient appears well, he is in no acute distress. HEENT: Nose has some erythema. Right forehead with some ecchymosis. Lungs: Normal rate and effort of breathing. Abdomen: Nondistended, nontender. Extremities: Right upper extremity tender to palpation of the right proximal humerus with some mild edema , nontender otherwise throughout the right upper extremity. Skin envelope is intact. Able to flex and extend his elbow, wrist and digits without any pain. Capillary refill less than 2 seconds distally. The patient does not answer questions regarding sensation. Left upper extremity and bilateral lower extremities skin envelope intact, nontender to palpation, able to flex and extend all joints without pain. Bilateral hips without pain with log roll. Right upper extremity: The patient is already wearing a sling. DIAGNOSTIC STUDIES/LAB DATA: Right humerus x-ray, humeral head fracture. Right shoulder x-ray, again showing right humeral head fracture. ASSESSMENT: Right humeral head fracture, some of this injury may be chronic rather than acute in nature. PLAN: The patient will be nonweightbearing of the right upper extremity. No range of motion of the shoulder. He should continue wearing a sling. He may range the elbow, wrist and digits as tolerated. He may remove the sling for hygiene. He should follow up in our office in [address] Elizabeth and x- rays were reviewed with Dr. Elizabeth, he agrees with this assessment and plan. MARIIA LITTLE [id number]/[facility] #: [id number] DRAKE
[2018-11-08] MEDS: Verapamil SR CAP* 180 MG PO SCH (12:05)
[2018-11-08] MEDS: GALANTAMINE 24 MG PO SCH (15:13)
--- NOTE | 2018-11-08 17:03 | PN ---
Subjective Date of Service: 11/08/18 Interval History: Denies any complaints.Has advanced dementia.Discussed with at bedside as well Objective Active Medications: Acetaminophen (Tylenol Tab*) 650 mg PO Q4H PRN PRN Reason: PAIN - MODERATE Cholecalciferol (Vitamin D Tab*) 1,000 units PO DAILY [facility] Last Admin: 11/08/18 11:23 Dose: 1,000 units Cyanocobalamin (Vitamin B12 Tab*) 2,000 mcg PO DAILY [facility] Last Admin: 11/08/18 11:21 Dose: 2,000 mcg Heparin Sodium (Porcine) (Heparin Vial(*)) 5,000 units SUBCUT Q12HR [facility] Last Admin: 11/08/18 09:56 Dose: 5,000 units Sodium Chloride (Ns 0.9% 1000 Ml) 1,000 mls @ 100 mls/hr IV PER RATE [facility] Last Admin: 11/08/18 04:35 Dose: 100 mls/hr Multivitamins/Minerals (Theragran/Minerals Tab*) 1 tab PO DAILY [facility] Last Admin: 11/08/18 11:21 Dose: 1 tab Pto Nf Med* Galantamine Er 24mg Tab 1 dose PO DAILY [facility] Last Admin: 11/08/18 15:13 Dose: Not Given Spironolactone (Aldactone Tab*) 12.5 mg PO DAILY [facility] Last Admin: 11/08/18 11:22 Dose: 12.5 mg Verapamil HCl (Calan Sr Cap*) 180 mg PO DAILY [facility] Last Admin: 11/08/18 12:05 Dose: 180 mg Vital Signs - 8 hr 11/08/18 11:15 Temperature 98.5 F Pulse Rate 80 Respiratory 20 Rate Blood Pressure 138/77 (mmHg) O2 Sat by Pulse 99 Oximetry Oxygen Devices in Use Now: None Eyes: No Scleral Icterus Neck: NL Appearance and Movements; NL JVP Respiratory: Symmetrical Chest Expansion and Respiratory Effort Cardiovascular: NL Sounds; No Murmurs; No JVD Abdominal: NL Sounds; No Tenderness; No Distention Extremities: - - wearing a sling Neurological: Alert and Oriented x 3, - - alert.not responding to questions in detail Result Diagrams: 11/08/18 06:19 11/08/18 06:19 Assess/Plan/Problems-Billing Assessment: - Patient Problems (1) Humerus fracture Current Visit: Yes Status: Acute Code(s): S42.309A - UNSP FRACTURE OF SHAFT OF HUMERUS, UNSP ARM, INIT SNOMED Code(s): 71220362 Comment: s/p fall no LOC seen by ortho conservative management sling pain control pt eval when able (2) BPH (benign prostatic hyperplasia) Current Visit: No Status: Chronic Priority: Medium Code(s): N40.0 - BENIGN PROSTATIC HYPERPLASIA WITHOUT LOWER URINRY TRACT SYMP SNOMED Code(s): 401299524 Comment: Continue finasteride (3) Hypertension Current Visit: No Status: Chronic Priority: Medium Code(s): I10 - ESSENTIAL (PRIMARY) HYPERTENSION SNOMED Code(s): 55862443 Comment: Continue Verapamil, aldactone
[2018-11-08] MEDS: Acetaminophen TAB* 325 MG PO PRN (17:30)
[2018-11-09 06:17] LABS: ABS Eosinophils 0.1 10^3/ul (0-0.6); ABS Lymphocytes 1.6 10^3/ul (1.0-4.8); ABS Monocytes 0.8 10^3/ul (0-0.8); ABS Neutrophils 4.3 10^3/ul (1.5-7.7); Hematocrit 38 % (42-52); Hemoglobin 12.8 g/dL (14.0-18.0); Lymphocyte % 22.6 %; Mean Corpuscular HGB Conc 34 g/dL (31-36); Mean Corpuscular Hemoglobin 32 pg (27-31); Mean Corpuscular Volume 95 fL (80-94); Nucleated Red Blood Cells % 0.1; Red Blood Count 3.99 10^6 /uL (4.18-5.48); Red Cell Distribution Width 15 % (10-15); White Blood Count 6.9 10^3/uL (3.5-10.8)
[2018-11-09 06:18] LABS: BUN/Creatinine Ratio 18.9 (8-20); Calcium 8.7 mg/dL (8.6-10.3); EGFR African American 91.6 (>60); EGFR Non-African American 75.7 (>60)
[2018-11-09 06:54] LABS: Potassium 4.6 mmol/L (3.5-5.0)
[2018-11-09 07:09] LABS: Platelet Count Platelets clumped. 10^3/uL (150-450)
[2018-11-09] MEDS: GALANTAMINE 24 MG PO SCH (08:01)
[2018-11-09] MEDS: NS 0.9% 1000 ML** 1,000 ML IV SCH (08:01)
[2018-11-09] MEDS: Spironolactone TAB* 25 MG PO SCH (08:02)
[2018-11-09] MEDS: Verapamil SR CAP* 180 MG PO SCH (08:02)
[2018-11-09] MEDS: Multivitamins/Minerals TAB PO SCH (08:02)
[2018-11-09] MEDS: Cholecalciferol TAB* 1000 UNITS PO SCH (08:02)
[2018-11-09] MEDS: Cyanocobalamin TAB* 500 MCG PO SCH (08:03)
[2018-11-09] MEDS: Heparin VIAL(*) 5000 UNITS/ML VIAL (FIVE THOUSAND) SUBCUT SCH ×2 (08:03→22:02)
[2018-11-09] MEDS: Acetaminophen TAB* 325 MG PO PRN (14:16)
[2018-11-09] MEDS ORDERED: Oxybutynin TAB* 5 MG PO PRN (15:28)
--- NOTE | 2018-11-09 15:28 | PN ---
Subjective Date of Service: 11/09/18 Interval History: denies any complaints.h/o underlying dementia and unable to express pain.bp increases with pain Objective Active Medications: Acetaminophen (Tylenol Tab*) 650 mg PO Q4H PRN PRN Reason: PAIN - MODERATE Last Admin: 11/09/18 14:16 Dose: 650 mg Cholecalciferol (Vitamin D Tab*) 1,000 units PO DAILY [facility] Last Admin: 11/09/18 08:02 Dose: 1,000 units Cyanocobalamin (Vitamin B12 Tab*) 2,000 mcg PO DAILY [facility] Last Admin: 11/09/18 08:03 Dose: Not Given Heparin Sodium (Porcine) (Heparin Vial(*)) 5,000 units SUBCUT Q12HR [facility] Last Admin: 11/09/18 08:03 Dose: 5,000 units Sodium Chloride (Ns 0.9% 1000 Ml) 1,000 mls @ 100 mls/hr IV PER RATE [facility] Last Admin: 11/09/18 08:01 Dose: 100 mls/hr Multivitamins/Minerals (Theragran/Minerals Tab*) 1 tab PO DAILY [facility] Last Admin: 11/09/18 08:02 Dose: 1 tab Pto Nf Med* Galantamine Er 24mg Tab 1 dose PO DAILY [facility] Last Admin: 11/09/18 08:01 Dose: 1 dose Spironolactone (Aldactone Tab*) 12.5 mg PO DAILY [facility] Last Admin: 11/09/18 08:02 Dose: 12.5 mg Verapamil HCl (Calan Sr Cap*) 180 mg PO DAILY [facility] Last Admin: 11/09/18 08:02 Dose: 180 mg Vital Signs - 8 hr 11/09/18 11/09/18 08:41 11:15 Temperature 98.0 F Pulse Rate 73 Respiratory 18 16 Rate Blood Pressure 142/63 (mmHg) O2 Sat by Pulse 96 Oximetry Oxygen Devices in Use Now: None Eyes: No Scleral Icterus Ears/Nose/Mouth/Throat: NL Teeth, Lips, Gums Neck: NL Appearance and Movements; NL JVP Respiratory: Symmetrical Chest Expansion and Respiratory Effort Cardiovascular: NL Sounds; No Murmurs; No JVD Abdominal: NL Sounds; No Tenderness; No Distention Extremities: - - in sling Skin: No Rash or Ulcers Neurological: Alert and Oriented x 3 Result Diagrams: 11/09/18 05:32 11/09/18 05:32 Assess/Plan/Problems-Billing Assessment: - Patient Problems (1) Humerus fracture Current Visit: Yes Status: Acute Code(s): S42.309A - UNSP FRACTURE OF SHAFT OF HUMERUS, UNSP ARM, INIT SNOMED Code(s): 83715076 Comment: s/p fall no LOC seen by ortho conservative management sling pain control pt ot (2) BPH (benign prostatic hyperplasia) Current Visit: No Status: Chronic Priority: Medium Code(s): N40.0 - BENIGN PROSTATIC HYPERPLASIA WITHOUT LOWER URINRY TRACT SYMP SNOMED Code(s): 628222880 Comment: Continue finasteride (3) Hypertension Current Visit: No Status: Chronic Priority: Medium Code(s): I10 - ESSENTIAL (PRIMARY) HYPERTENSION SNOMED Code(s): 10659705 Comment: Continue Verapamil, aldactone Adjusting Verapamil dose. Prev on 360 mg every other day before that 180 mg once a day will adjust dose based on response (4) Pain Current Visit: Yes Status: Acute Code(s): R52 - PAIN, UNSPECIFIED SNOMED Code(s): 26974262 Comment: Does not verbally express pain and he only nods and does not have a conversation at baseline BP increases suggesting pain Will keep him comfortable Already needed sig help at home and was helping with ADLS now with broken humeus, harder to be independant
[2018-11-09] MEDS ORDERED: oxyCODONE TAB* 5 MG TAB PO PRN (15:29)
[2018-11-10 06:59] LABS: ABS Eosinophils 0.1 10^3/ul (0-0.6); ABS Lymphocytes 1.6 10^3/ul (1.0-4.8); ABS Monocytes 0.9 10^3/ul (0-0.8); ABS Neutrophils 5.1 10^3/ul (1.5-7.7); Eosinophil % 1.5 %; Hematocrit 38 % (42-52); Hemoglobin 13.3 g/dL (14.0-18.0); Lymphocyte % 20.8 %; Mean Corpuscular HGB Conc 35 g/dL (31-36); Mean Corpuscular Hemoglobin 33 pg (27-31); Mean Corpuscular Volume 94 fL (80-94); Mean Platelet Volume 7.7 fL (7.4-10.4); Nucleated Red Blood Cells % 0.1; Platelet Count 168 10^3/uL (150-450); Red Blood Count 4.05 10^6 /uL (4.18-5.48); Red Cell Distribution Width 14 % (10-15); White Blood Count 7.8 10^3/uL (3.5-10.8)
[2018-11-10 07:08] LABS: BUN/Creatinine Ratio 16.5 (8-20); Calcium 8.9 mg/dL (8.6-10.3); EGFR African American 104.2 (>60); EGFR Non-African American 86.1 (>60); Potassium 4.2 mmol/L (3.5-5.0)
--- NOTE | 2018-11-10 09:39 | PN ---
Subjective Date of Service: 11/10/18 Interval History: Denies any complaints. Has baseline dementia Objective Active Medications: Acetaminophen (Tylenol Tab*) 650 mg PO Q4H PRN PRN Reason: PAIN - MODERATE Last Admin: 11/09/18 14:16 Dose: 650 mg Cholecalciferol (Vitamin D Tab*) 1,000 units PO DAILY [facility] Last Admin: 11/09/18 08:02 Dose: 1,000 units Cyanocobalamin (Vitamin B12 Tab*) 2,000 mcg PO DAILY [facility] Last Admin: 11/09/18 08:03 Dose: Not Given Heparin Sodium (Porcine) (Heparin Vial(*)) 5,000 units SUBCUT Q12HR [facility] Last Admin: 11/09/18 22:02 Dose: 5,000 units Multivitamins/Minerals (Theragran/Minerals Tab*) 1 tab PO DAILY [facility] Last Admin: 11/09/18 08:02 Dose: 1 tab Pto Nf Med* Galantamine Er 24mg Tab 1 dose PO DAILY [facility] Last Admin: 11/09/18 08:01 Dose: 1 dose Oxycodone HCl (Roxycodone Tab*) 5 mg PO Q6H PRN PRN Reason: PAIN - SEVERE Spironolactone (Aldactone Tab*) 12.5 mg PO DAILY [facility] Last Admin: 11/09/18 08:02 Dose: 12.5 mg Verapamil HCl (Calan Sr Cap*) 180 mg PO DAILY [facility] Last Admin: 11/09/18 08:02 Dose: 180 mg Vital Signs - 8 hr 11/10/18 04:04 Temperature 98.3 F Pulse Rate 93 Respiratory 18 Rate Blood Pressure 151/74 (mmHg) O2 Sat by Pulse 91 Oximetry Oxygen Devices in Use Now: None Eyes: No Scleral Icterus Ears/Nose/Mouth/Throat: NL Teeth, Lips, Gums Neck: NL Appearance and Movements; NL JVP Respiratory: Symmetrical Chest Expansion and Respiratory Effort Cardiovascular: NL Sounds; No Murmurs; No JVD Abdominal: NL Sounds; No Tenderness; No Distention Extremities: - - sling in place Neurological: Alert and Oriented x 3 Result Diagrams: 11/10/18 06:36 11/10/18 06:36 Assess/Plan/Problems-Billing Assessment: - Patient Problems (1) Humerus fracture Current Visit: Yes Status: Acute Code(s): S42.309A - UNSP FRACTURE OF SHAFT OF HUMERUS, UNSP ARM, INIT SNOMED Code(s): 87236332 Comment: s/p fall no LOC seen by ortho conservative management sling pain control pt ot rehab evaluation in progress (2) BPH (benign prostatic hyperplasia) Current Visit: No Status: Chronic Priority: Medium Code(s): N40.0 - BENIGN PROSTATIC HYPERPLASIA WITHOUT LOWER URINRY TRACT SYMP SNOMED Code(s): 686169370 Comment: Continue finasteride (3) Hypertension Current Visit: No Status: Chronic Priority: Medium Code(s): I10 - ESSENTIAL (PRIMARY) HYPERTENSION SNOMED Code(s): 89023792 Comment: Continue Verapamil, aldactone Adjusting Verapamil dose. Prev on 360 mg every other day before that 180 mg once a day will adjust dose based on response (4) Pain Current Visit: Yes Status: Acute Code(s): R52 - PAIN, UNSPECIFIED SNOMED Code(s): 59546751 Comment: Does not verbally express pain and he only nods and does not have a conversation at baseline BP increases suggesting pain Will keep him comfortable Already needed sig help at home and was helping with ADLS now with broken humeus, harder to be independant
[2018-11-10] MEDS: GALANTAMINE 24 MG PO SCH (09:58)
[2018-11-10] MEDS: Cholecalciferol TAB* 1000 UNITS PO SCH (09:58)
[2018-11-10] MEDS: Multivitamins/Minerals TAB PO SCH (09:58)
[2018-11-10] MEDS: Heparin VIAL(*) 5000 UNITS/ML VIAL (FIVE THOUSAND) SUBCUT SCH ×2 (09:58→20:49)
[2018-11-10] MEDS: Spironolactone TAB* 25 MG PO SCH (09:58)
[2018-11-10] MEDS: Cyanocobalamin TAB* 500 MCG PO SCH (09:58)
[2018-11-10] MEDS: Verapamil SR CAP* 180 MG PO SCH (09:59)
[2018-11-10] MEDS: Acetaminophen TAB* 325 MG PO PRN ×2 (10:27→18:03)
[2018-11-11 07:42] LABS: ABS Eosinophils 0.2 10^3/ul (0-0.6); ABS Lymphocytes 1.5 10^3/ul (1.0-4.8); ABS Monocytes 0.8 10^3/ul (0-0.8); ABS Neutrophils 4.6 10^3/ul (1.5-7.7); Eosinophil % 3.4 %; Hematocrit 36 % (42-52); Hemoglobin 12.4 g/dL (14.0-18.0); Lymphocyte % 21.4 %; Mean Corpuscular HGB Conc 35 g/dL (31-36); Mean Corpuscular Hemoglobin 33 pg (27-31); Mean Corpuscular Volume 95 fL (80-94); Mean Platelet Volume 7.6 fL (7.4-10.4); Nucleated Red Blood Cells % 0.1; Platelet Count 164 10^3/uL (150-450); Red Blood Count 3.79 10^6 /uL (4.18-5.48); Red Cell Distribution Width 15 % (10-15); White Blood Count 7.2 10^3/uL (3.5-10.8)
[2018-11-11 07:58] LABS: BUN/Creatinine Ratio 21.3 (8-20); Calcium 8.9 mg/dL (8.6-10.3); EGFR African American 98.8 (>60); EGFR Non-African American 81.6 (>60); Potassium 4.2 mmol/L (3.5-5.0)
[2018-11-11] MEDS: Heparin VIAL(*) 5000 UNITS/ML VIAL (FIVE THOUSAND) SUBCUT SCH ×2 (09:07→20:54)
[2018-11-11] MEDS: Cyanocobalamin TAB* 500 MCG PO SCH (09:07)
[2018-11-11] MEDS: Spironolactone TAB* 25 MG PO SCH (09:07)
[2018-11-11] MEDS: Cholecalciferol TAB* 1000 UNITS PO SCH (09:07)
[2018-11-11] MEDS: Verapamil SR CAP* 180 MG PO SCH (09:09)
[2018-11-11] MEDS: Multivitamins/Minerals TAB PO SCH (09:09)
[2018-11-11] MEDS: GALANTAMINE 24 MG PO SCH (09:16)
--- NOTE | 2018-11-11 15:53 | PN ---
Subjective Date of Service: 11/11/18 Interval History: Patient overall nonverbal due to dementia so provides most of history. She tells me he has been feeling comfortable and not showing signs of pain. He has been up walking with nursing today. No overnight events per nursing. Objective Active Medications: Acetaminophen (Tylenol Tab*) 650 mg PO Q4H PRN PRN Reason: PAIN - MODERATE Last Admin: 11/10/18 18:03 Dose: 650 mg Cholecalciferol (Vitamin D Tab*) 1,000 units PO DAILY [facility] Last Admin: 11/11/18 09:07 Dose: 1,000 units Cyanocobalamin (Vitamin B12 Tab*) 2,000 mcg PO DAILY [facility] Last Admin: 11/11/18 09:07 Dose: 2,000 mcg Heparin Sodium (Porcine) (Heparin Vial(*)) 5,000 units SUBCUT Q12HR [facility] Last Admin: 11/11/18 09:07 Dose: 5,000 units Influenza Virus Vaccine (Fluarix Quad [id number] Syr) 0.5 ml IM .ONCE ONE Stop: 11/12/18 09:01 Multivitamins/Minerals (Theragran/Minerals Tab*) 1 tab PO DAILY [facility] Last Admin: 11/11/18 09:09 Dose: 1 tab Pto Nf Med* Galantamine Er 24mg Tab 1 dose PO DAILY [facility] Last Admin: 11/11/18 09:16 Dose: 1 dose Oxycodone HCl (Roxycodone Tab*) 5 mg PO Q6H PRN PRN Reason: PAIN - SEVERE Spironolactone (Aldactone Tab*) 12.5 mg PO DAILY [facility] Last Admin: 11/11/18 09:07 Dose: 12.5 mg Verapamil HCl (Calan Sr Cap*) 180 mg PO DAILY [facility] Last Admin: 11/11/18 09:09 Dose: 180 mg Vital Signs - 8 hr 11/11/18 11/11/18 08:00 11:15 Temperature 97.4 F Pulse Rate 84 Respiratory 18 20 Rate Blood Pressure 123/68 (mmHg) O2 Sat by Pulse 96 Oximetry Oxygen Devices in Use Now: None Appearance: Elderly white male, laying upright in bed, appearing in NAD Eyes: No Scleral Icterus, PERRLA Ears/Nose/Mouth/Throat: Mucous Membranes Moist Neck: NL Appearance and Movements; NL JVP Respiratory: Symmetrical Chest Expansion and Respiratory Effort, Clear to Auscultation Cardiovascular: NL Sounds; No Murmurs; No JVD, RRR Abdominal: - - abd soft, nontender, nondistended Extremities: No Edema, No Clubbing, Cyanosis, - - right arm in sling Skin: No Rash or Ulcers Neurological: NL Muscle Strength and Tone, - - alert, oriented x0 Result Diagrams: 11/11/18 07:24 11/11/18 07:24 Assess/Plan/Problems-Billing Assessment: 83 yo white male with PMHx dementia, PILOT STATION, HTN, BPH presents s/p fall with right humerus fracture. - Patient Problems (1) Humerus fracture Current Visit: Yes Status: Acute Code(s): S42.309A - UNSP FRACTURE OF SHAFT OF HUMERUS, UNSP ARM, INIT SNOMED Code(s): 14391700 Comment: -2/2 fall -orthopedics consulting, opting for conservative management -good pain control with only tylenol. Oxycodone has not been needed. Patient is overall nonverbal but not with outward expression of distress -continue sling; questioning if possible to get sling with torso strap considering patient has dementia and needs cues to avoid shoulder ROM -PT/OT. PATRICE vs PMRU pending (2) BPH (benign prostatic hyperplasia) Current Visit: No Status: Chronic Priority: Medium Code(s): N40.0 - BENIGN PROSTATIC HYPERPLASIA WITHOUT LOWER URINRY TRACT SYMP SNOMED Code(s): 106039795 Comment: -no home med (3) Hypertension Current Visit: No Status: Chronic Priority: Medium Code(s): I10 - ESSENTIAL (PRIMARY) HYPERTENSION SNOMED Code(s): 69888634 Comment: -Continue Verapamil and aldactone -Verapamil dose has been adjusted during this hospital stay with good BP response (4) Dementia Current Visit: No Status: Chronic Priority: Medium Code(s): F03.90 - UNSPECIFIED DEMENTIA WITHOUT BEHAVIORAL DISTURBANCE SNOMED Code(s): 15280855 Comment: -supportive care -galantamine home med brought by family (5) DVT prophylaxis Current Visit: No Status: Acute Priority: Medium Code(s): [id number] - SNOMED Code(s): 216746348 Comment: -subQ heparin (6) DNR (do not resuscitate) Current Visit: Yes Status: Acute Status and Disposition: Pending PATRICE vs PMRU
[2018-11-11] MEDS: Acetaminophen TAB* 325 MG PO PRN ×2 (17:37→22:00)
[2018-11-12] MEDS ORDERED: Influenza VAC *QUAD* 2019-20* 0.5 ML SYRINGE IM ONE (09:00)
[2018-11-12] MEDS: Heparin VIAL(*) 5000 UNITS/ML VIAL (FIVE THOUSAND) SUBCUT SCH (09:11)
[2018-11-12] MEDS: Verapamil SR CAP* 180 MG PO SCH (09:13)
[2018-11-12] MEDS: Cholecalciferol TAB* 1000 UNITS PO SCH (09:14)
[2018-11-12] MEDS: Cyanocobalamin TAB* 500 MCG PO SCH (09:15)
[2018-11-12] MEDS: Spironolactone TAB* 25 MG PO SCH (09:16)
[2018-11-12] MEDS: Multivitamins/Minerals TAB PO SCH (09:18)
[2018-11-12] MEDS: GALANTAMINE 24 MG PO SCH (10:26)
[2018-11-12 11:43] VITALS: BP 125/52
--- NOTE | 2018-11-12 13:15 | DS ---
CC: Dr. Jorge; Dr. Elizabeth; MARIIA Otto; [facility]. * DATE OF ADMISSION: 11/08/2018. DATE OF DISCHARGE: 11/12/2018. ATTENDING PHYSICIAN WHILE IN THE HOSPITAL: Dr. Shelby Jessica * (dictated by MARIIA Ortiz). PRIMARY CARE PHYSICIAN: Dr. Jorge. CONSULTING ORTHOPEDIC TEAM: Dr. Elizabeth and MARIIA Otto. PRIMARY DIAGNOSIS: Right humeral neck fracture. SECONDARY DIAGNOSES: 1. Advanced dementia, mostly nonverbal. 2. BPH. 3. Urinary incontinence secondary to BPH. 4. Hypertension. 5. Hard of hearing. 6. Arthritis. 7. History of hiatal hernia. STUDIES WHILE IN THE HOSPITAL: 1. Humerus x-ray on 11/07/2018: Poorly defined displaced fracture of the humeral head and metaphysis on the right side. A CT scan of the right shoulder may be helpful in further definition. 2. Shoulder x-ray on : Poorly defined impacted fracture of the humeral head and metaphysis. A CT scan of the right shoulder may be helpful in further definition. 3. Maxillofacial CT on 11/07/2018: Right frontal contusion/hematoma. No facial bone fractures. 4. Cervical spine CT on 11/07/2018: Impression: Cervical spine traumatic abnormalities. Mild multilevel cervical spondylopathy. 5. Brain CT on 11/07/2018: Impression: Frontal subcutaneous contusion/ hematoma. No traumatic intracranial abnormalities. Age-related atrophy and mild chronic small vessel ischemic disease. HISTORY OF PRESENT ILLNESS/HOSPITAL COURSE: Courtney Wright is an 83-year-old male with a past medical history significant for advanced dementia who is overall nonverbal, BPH, and hypertension who came to the emergency department on 11/07/2018 secondary to a mechanical fall in his home. 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 He was found to have a contusion to the frontal region of his head without intracranial abnormality. He was found to have a right humeral neck fracture. The Orthopedic team saw the patient is consultation and with the patient's healthcare proxy, who is his , came to the decision that overall conservative management of this fracture would be preferred and they are not opting to proceed with surgery and recommended nonweightbearing of the right upper extremity. Shoulder sling was recommended to be continued. He was seen by Physical Therapy who agreed that the patient would need rehab before returning home and the patient was accepted to [facility] for subacute rehab. During his stay, he overall was normotensive. He has very good pain control with only Tylenol and Oxycodone was not needed at any point. Orthopedics felt the patient was safe for discharge. During his hospital stay, his Verapamil home dose was decreased and still had very good control of his blood pressure. PHYSICAL EXAMINATION ON THE DAY OF DISCHARGE: General: Elderly, white male lying upright in the hospital bed, appearing comfortable, in no acute distress. HEENT: Head: Ecchymosis to forehead. Eyes: PERRL. Sclerae anicteric. ENT : Mucous membranes moist. Neck: Supple. Lungs: Clear to auscultation throughout. Cardio: Regular rate and rhythm without murmurs, rubs, or gallops. Abdomen: Soft, nontender, nondistended. Extremities: No clubbing or cyanosis. Trace edema isolated only to right hand. Right shoulder in sling. Neuro: The patient is alert and oriented only to self. He does not answer questions appropriately which is his baseline. Able to move all extremities. DISCHARGE PLAN: He is to follow-up with Orthopedics in two weeks from his admission which should be around November 22 and if the facility could please facilitate this follow-up that would be much appreciated. The patient should additionally follow-up with his primary care provider within seven to ten days after discharge from the nursing facility. He should return to the emergency department if he is experiencing worsening pain, paraesthesias of the extremity , suddenly cold extremity, or cyanosis of the extremity. DISCHARGE MEDICATIONS: 1. Tylenol 650 mg p.o. q.4 hours prn pain. 2. Verapamil 180 mg p.o. daily. CONTINUED HOME MEDICATIONS: 1. Vitamin D 1,000 units p.o. daily. 2. Galantamine 24 mg p.o. daily. 3. Terbinafine one application topically daily prn rash. 4. Triamcinolone one application topically daily prn rash. 5. Cyanocobalamin 2,000 mcg p.o. daily. 6. Spironolactone 12.5 mg p.o. daily. 7. Multivitamin one tab p.o. daily. DISCONTINUED HOME MEDICATIONS: Verapamil 360 mg p.o. daily. DIET: Regular unrestricted diet. ACTIVITY: Patient is to have nonweightbearing of his right arm. He is to restrict activity of his right shoulder, but range of motion of the right elbow , wrist, and digits is acceptable. The patient is to remain in a right-sided sling, but it is okay to be removed for hygiene purposes per orthopedics. The patient should continue with therapy when he is at [place] for subacute rehab. CONDITION ON DISCHARGE: Stable. DISPOSITION: [facility]. TIME SPENT: Approximately 40 minutes were spent on this discharge, approximately half of that time was spent at bedside. MARIIA ORTIZ [id number]/[facility] #: [id number]
== END 2018-11-12 13:30 | DRG 563 ==
LOC: ED 21:08 → MED 11-08 02:48
PROVIDERS: ADMIT Internal Medicine; ATTEND Internal Medicine
DX: S42.291A Other displaced fracture of upper end of right humerus, initial encounter for closed fracture (principal); F03.90 Unspecified dementia, unspecified severity, without behavioral disturbance, psychotic disturbance, mood disturbance, and anxiety; S00.83XA Contusion of other part of head, initial encounter; N40.1 Benign prostatic hyperplasia with lower urinary tract symptoms; N39.498 Other specified urinary incontinence; I10 Essential (primary) hypertension; M19.90 Unspecified osteoarthritis, unspecified site; H91.90 Unspecified hearing loss, unspecified ear; I44.0 Atrioventricular block, first degree; Z66 Do not resuscitate; E66.9 Obesity, unspecified; K42.9 Umbilical hernia without obstruction or gangrene; W18.30XA Fall on same level, unspecified, initial encounter; Z79.899 Other long term (current) drug therapy; Y92.009 Unspecified place in unspecified non-institutional (private) residence as the place of occurrence of the external cause; Z88.8 Allergy status to other drugs, medicaments and biological substances; Z87.891 Personal history of nicotine dependence; Z68.35 Body mass index [BMI] 35.0-35.9, adult
CPT/HCPCS: 36415; 70450; 70486; 72125; 80048; 80053; 85025; 85049; 90686; 93005; 99284; A9270-GY; G8978-GP-CK; G8978-GP-CL; G8979-GP-CI; G8979-GP-CJ; J1644; J1885

== ENCOUNTER 2019-02-04 09:50 | Emergency (ER) | payer MEDICARE ==
--- OUTSIDE RECORDS SUMMARY | 2019-02-04 09:55 | XMS REPORT ---
:1935 Author Organization [facility] Care Team Providers Name Role Phone Unavailable Unavailable Unavailable Problems This patient has no known problems. Allergies, Adverse Reactions, Alerts Allergy Allergy Status Severity Reaction(s) Onset Inactive Treating Comments Name Type Date Date Clinician Unknown None Active Unknown None Unknown No Known Allergies For This Patient Medications Ordered Filled Start Stop Current Ordering Indication Dosage Frequency Signature Comments Components Medication Medication Date Date Medication? Clinician (SIG) Name Name No Known No Known No None None None Medications Medications For This For This Patient Patient Procedures This patient has no known procedures. Results This patient has no known results.
--- OUTSIDE RECORDS SUMMARY | 2019-02-04 09:55 | XMS REPORT ---
:1935 Author Organization [facility] Care Team Providers Name Role Phone Unavailable [...]
--- OUTSIDE RECORDS SUMMARY | 2019-02-04 09:55 | XMS REPORT ---
:1935 Author Organization [facility] Care Team Providers Name Role Phone Unavailable [...]
--- OUTSIDE RECORDS SUMMARY | 2019-02-04 09:55 | XMS REPORT ---
:1935 Author Organization [facility] Care Team Providers Name Role Phone Unavailable Unavailable Unavailable Problems Condition Condition Condition Status Onset Resolution Last Treating Comments Name Details Category Date Date Treatment Clinician Date Pain frequent Pain Mgmt Active 2018-02 Kiersten pain 0-21 (Divina) 10:00: [id number] Respiratory dyspnea Respirator Active 2018-02 Kiersten present y 0-21 (Divina) 10:00: [id number] Sensory learning Sensory Active 2018-02 Kiersten deficit 0-21 (Divina) 10:00: [id number] Integument skin Integument Active 2018-02 Kiersten integrity 0-21 (Divina) risk 10:00: [id number] Elimination urinary Eliminatio Active 2018-02 Kiersten incontinenc n 0-21 (Divina) e 10:00: [id number] Elimination bowel Eliminatio Active 2018-02 Kiersten incontinenc n 0-21 (Divina) e 10:00: [id number] Neuro confusion Neuro/Emot Active 2018-02 Kiersten present ion 0-21 (Divina) 10:00: [id number] Neuro impaired Neuro/Emot Active 2018-02 Kiersten decision-ma ion 0-21 (Divina) adolfo 10:00: [id number] Neuro memory Neuro/Emot Active 2018-02 Kiersten deficit ion 0-21 (Divina) needing 10:00: Sears supervision [id number] Activity ADL Activity Active 2018-02 Kiersten assistance 0-21 (Divina) required 10:00: [id number] Activity self-care Activity Active 2018-02 Kiersten deficit 0-21 (Divina) 10:00: [id number] Safety fall risk Safety Active 2018-02 Kiersten factor 0-21 (Divina) present 10:00: Sears [id number] Safety cannot be Safety Active 2018-02 Kiersten left alone 0-21 (Divina) 10:00: Sears [id number] Safety risk for Safety Active 2018-02 Kiersten hospitaliza 0-21 (Divina) tion 10:00: Sears [id number] Medication oral med Meds Active 2018-02 Kiersten assistance 0-21 (Divina) required 10:00: Sears [id number] Musculoskel transfer Musculoske Active 2018-02 Kiersten etal assistance letal 0-21 (Divina) required 10:00: Sears [id number] Musculoskel requires Musculoske Active 2018-02 Kiersten etal human letal 0-21 (Divina) assist to 10:00: Sears leave home [id number] Nutrition nutritional Nutrition Active 2018-02 Frank restriction 0-21 Anguish s 13:09: [id number] Safety structural Safety Active 2018-02 Frank barriers 0-21 Anguish present 13:09: [id number] Safety can be left Safety Active 2018-02 Frank alone for 0-21 Anguish only short 13:09: [id number] periods 00 Bed mobility/tr PT/OT: Bed Active 2018-02 Frank Mobility/Tr ansfer Mobility/T 0-21 Anguish ansfer device ransfer 13:09: [id number] present 00 Bed transfer PT/OT: Bed Active 2018-02 Frank Mobility/Tr deficit: Mobility/T 0-21 Anguish ansfer sit/stand ransfer 13:09: [id number] 00 Bed transfer PT/OT: Bed Active 2018-02 Frank Mobility/Tr deficit: Mobility/T 0-21 Anguish ansfer toilet/comm ransfer 13:09: [id number] ode 00 Bed transfer PT/OT: Bed Active 2018-02 Frank Mobility/Tr deficit: Mobility/T 0-21 Anguish ansfer shower/tub ransfer 13:09: [id number] Bed bed PT/OT: Bed Active 2018-02 Frank Mobility/Tr mobility Mobility/T 0-21 Anguish ansfer deficit ransfer 13:09: [id number] Balance/End balance/larder cook PT/OT: Active 2018-02 Frank urance rdination Balance/En 0-21 Anguish deficit durance 13:09: [id number] 00 Balance/End endurance PT/OT: Active 2018-02 Frank bentley deficit Balance/En 0-21 Anguish durance 13:09: [id number] Gait/Locomo gait PT/OT: Active 2018-02 Frank tion assistive Gait/Locom 0-21 Anguish problems device otion 13:09: [id number] present 00 Gait/Locomo gait PT/OT: Active 2018-02 Frank tion deficit Gait/Locom 0-21 Anguish problems otion 13:09: [id number] 00 Spoken Comp non-verbal ST: Spoken Active 2018-02 Yara comm Comp 0-31 Toi WOOD POLE TREATER deficit 13:30: [id number] Spoken Comp knowledge/s ST: Spoken Active 2018-02 Yara kill Comp 0-31 Toi WOOD POLE TREATER deficit - 13:30: [id number] pt 00 Spoken Prod knowledge/s ST: Spoken Active 2018-02 aYra sharma Prod 0-31 Toi WOOD POLE TREATER deficit - 13:30: [id number] pt [address]: Active 2018-02 Yara comm Cognition 0-31 Toi WOOD POLE TREATER deficit 13:30: [id number] Cognition knowledge/s ST: Active 2018-02 Yara kill Cognition 0-31 Toi WOOD POLE TREATER deficit - 13:30: [id number] pt 00 Allergies, Adverse Reactions, Alerts Allergy Allergy Type Status Severity Reaction(s) Onset Inactive Treating Comments Name Date Date Clinician losartan Base Active Unknown Reaction 2018-02 Nessa Beam Ingredient Unknown 0-15 donepezil Base Active Unknown Reaction 2018-02 Nessa Beam Ingredient Unknown 0-15 Medications Ordered Filled Start Stop Current Ordering Indication Dosage Frequency Signature Comments Components Medication Medication Date Date Medication? Clinician (SIG) Name Name multivitami multivitami 2018-02 Yes Luisito Unknown Unknown n capsule n capsule 0-21 Karol WHATLEY triamcinolo triamcinolo 2018-02 Yes Luisito Unknown Unknown ne ne 0-21 Karol WHATLEY acetonide acetonide 0.1 % 0.1 % lotion lotion cholecalcif cholecalcif 2018-02 Yes Luisito Unknown Unknown bienvenido bienvenido 0-21 Karol WHATLEY (vitamin (vitamin D3) 1,000 D3) 1,000 unit unit capsule capsule terbinafine terbinafine 2018-02 Yes Luisito Unknown Unknown HCl 1 % HCl 1 % 0-21 Karol WHATLEY topical topical cream cream cyanocobala cyanocobala 2018-02 Yes Luisito Unknown Unknown min (vit min (vit 0-21 Karol WHATLEY B-12) 1,000 B-12) 1,000 mcg tablet mcg tablet spironolact spironolact 2018-02 Yes Luisito Unknown Unknown one 25 mg one 25 mg 0-21 Karol WHATLEY tablet tablet galantamine galantamine 2018-02 Yes Luisito Unknown Unknown ER 24 mg 24 ER 24 mg 24 0-21 MDKarol hr hr capsule,ext capsule,ext ended ended release release verapamil verapamil 2018-02 Yes Luisito Unknown Unknown ER (SR) 180 ER (SR) 180 0-21 MD,Karol mg mg tablet,exte tablet,exte nded nded release release Vital Signs Vital Name Observation Time Observation Value Comments SYSTOLIC mm[Hg] 2019-01-24 18:09:12 102 mm[Hg] mm[Hg] Method: Sit SYSTOLIC mm[Hg] 2018-12-12 18:08:29 132 mm[Hg] mm[Hg] Method: Stand DIASTOLIC mm[Hg] 2019-01-24 18:09:12 62 mm[Hg] mm[Hg] Method: Sit DIASTOLIC mm[Hg] 2018-12-12 18:08:29 80 mm[Hg] mm[Hg] Method: Stand PULSE 2019-01-24 18:09:12 74 /min /min RESP RATE 2018-12-12 18:08:29 16 /min /min TEMP 2019-01-24 18:09:12 97.4 [degF] Procedures This patient has no known procedures. Results This patient has no known results.
--- OUTSIDE RECORDS SUMMARY | 2019-02-04 09:55 | XMS REPORT ---
:1935 Author Organization [facility] Care Team Providers Name Role Phone Unavailable Unavailable Unavailable Problems Condition Condition Condition Status Onset Resolution Last Treating Comments Name Details Category Date Date Treatment Clinician Date Pain frequent Pain Mgmt Active 2018-02 Kiersten pain 0-21 (Divina) 10:00: [id number] Respiratory dyspnea Respirator Active 2018-02 Kiersten present y 0-21 (Divina) 10:00: [id number] Sensory learning Sensory Active 2018-02 Kiersten deficit 0-21 (Divina) 10:00: [id number] Integument skin Integument Active 2018-02 Kiersten integrity 0-21 (Divina) risk 10:00: [id number] Elimination urinary Eliminatio Active 2018-02 Kiersten incontinenc n 0-21 (Divina) e 10:00: [id number] Elimination bowel Eliminatio Active 2018-02 Kiersten incontinenc n 0-21 (Divina) e 10:00: [id number] Neuro confusion Neuro/Emot Active 2018-02 Kiersten present ion 0-21 (Divina) 10:00: [id number] Neuro impaired Neuro/Emot Active 2018-02 Kiersten decision-ma ion 0-21 (Divina) adolfo 10:00: [id number] Neuro memory Neuro/Emot Active 2018-02 Kiersten deficit ion 0-21 (Divina) needing 10:00: Sears supervision [id number] Activity ADL Activity Active 2018-02 Kiersten assistance 0-21 (Divina) required 10:00: [id number] Activity self-care Activity Active 2018-02 Kiersten deficit 0-21 (Divina) 10:00: [id number] Safety fall risk Safety Active 2018-02 Kiersten factor 0-21 (Divina) present 10:00: Sears [id number] Safety cannot be Safety Active 2018-02 Kiersten left alone 0-21 (Divina) 10:00: Sears [id number] Safety risk for Safety Active 2018-02 Kiersten hospitaliza 0-21 (Divina) tion 10:00: Sears [id number] Medication oral med Meds Active 2018-02 Kiersten assistance 0-21 (Divina) required 10:00: Sears [id number] Musculoskel transfer Musculoske Active 2018-02 Kiersten etal assistance letal 0-21 (Divina) required 10:00: Sears [id number] Musculoskel requires Musculoske Active 2018-02 Kiersten etal human letal 0-21 (Divina) assist to 10:00: Sears leave home [id number] Nutrition nutritional Nutrition Active 2018-02 Frank restriction 0-21 Anguish s 13:09: [id number] Safety structural Safety Active 2018-02 Frank barriers 0-21 Anguish present 13:09: [id number] Safety can be left Safety Active 2018-02 Frank alone for 0-21 Anguish only short 13:09: [id number] periods 00 Bed mobility/tr PT/OT: Bed Active 2018-02 Frank Mobility/Tr ansfer Mobility/T 0-21 Anguish ansfer device ransfer 13:09: [id number] present 00 Bed transfer PT/OT: Bed Active 2018-02 Frank Mobility/Tr deficit: Mobility/T 0-21 Anguish ansfer sit/stand ransfer 13:09: [id number] 00 Bed transfer PT/OT: Bed Active 2018-02 Frank Mobility/Tr deficit: Mobility/T 0-21 Anguish ansfer toilet/comm ransfer 13:09: [id number] ode 00 Bed transfer PT/OT: Bed Active 2018-02 Frank Mobility/Tr deficit: Mobility/T 0-21 Anguish ansfer shower/tub ransfer 13:09: [id number] 00 Bed bed PT/OT: Bed Active 2018-02 Frank Mobility/Tr mobility Mobility/T 0-21 Anguish ansfer deficit ransfer 13:09: [id number] 00 Balance/End balance/cooker loader PT/OT: Active 2018-02 Frank urance rdination Balance/En 0-21 Anguish deficit durance 13:09: [id number] 00 Balance/End endurance PT/OT: Active 2018-02 Frank bentley deficit Balance/En 0-21 Anguish durance 13:09: [id number] 00 Gait/Locomo gait PT/OT: Active 2018-02 Frank tion assistive Gait/Locom 0-21 Anguish problems device otion 13:09: [id number] present 00 Gait/Locomo gait PT/OT: Active 2018-02 Frank tion deficit Gait/Locom 0-21 Anguish problems otion 13:09: [id number] 00 Spoken Comp non-verbal ST: Spoken Active 2018-02 Yara comm Comp 0-31 Toi DAIRY GRAZER deficit 13:30: [id number] 00 Spoken Comp knowledge/s ST: Spoken Active 2018-02 Yara kill Comp 0-31 Toi DAIRY GRAZER deficit - 13:30: [id number] pt 00 Spoken Prod knowledge/s ST: Spoken Active 2018-02 Yara sharma Prod 0-31 Toi DAIRY GRAZER deficit - 13:30: [id number] pt [address]: Active 2018-02 Yara comm Cognition 0-31 Toi DAIRY GRAZER deficit 13:30: [id number] Cognition knowledge/s ST: Active 2018-02 Yara kill Cognition 0-31 Toi DAIRY GRAZER deficit - 13:30: [id number] pt 00 Allergies, Adverse Reactions, Alerts Allergy [...] one 25 mg one 25 mg 0-21 ,Karol tablet tablet galantamine galantamine 2018-02 Yes Luisito Unknown Unknown ER 24 mg 24 ER 24 mg 24 0-21 MDKarol hr hr capsule,ext capsule,ext ended ended release release verapamil verapamil 2018-02 Yes Luisito Unknown Unknown ER (SR) 180 ER (SR) 180 0-21 MD,Karol mg mg tablet,exte tablet,exte nded nded release release Vital Signs Vital Name Observation Time Observation Value Comments SYSTOLIC mm[Hg] 2018-12-12 18:08:29 132 mm[Hg] mm[Hg] Method: Stand DIASTOLIC mm[Hg] 2018-12-12 18:08:29 80 mm[Hg] mm[Hg] Method: Stand PULSE 2019-01-31 18:09:19 58 /min /min RESP RATE 2018-12-12 18:08:29 16 /min /min TEMP 2019-01-31 18:09:19 97.5 [degF] Procedures This patient has no known procedures. Results This patient has no known results.
--- OUTSIDE RECORDS SUMMARY | 2019-02-04 09:55 | XMS REPORT ---
:1935 Author Organization [facility] Care Team Providers Name Role Phone Unavailable Unavailable Unavailable Problems Condition Condition Condition Status Onset Resolution Last Treating Comments Name Details Category Date Date Treatment Clinician Date Pain frequent Pain Mgmt Active 2018-02 Kiersten pain 0-21 (Divina) 10:00: [id number] Respiratory dyspnea Respirator Active 2018-02 Kiersten present y 0-21 (Divina) 10:00: [id number] Sensory learning Sensory Active 2018-02 Kiersten deficit 0-21 (Divina) 10:00: [id number] Integument skin Integument Active 2018-02 Kiersten integrity 0-21 (Divina) risk 10:00: [id number] Elimination urinary Eliminatio Active 2018-02 Kiersten incontinenc n 0-21 (Divina) e 10:00: [id number] Elimination bowel Eliminatio Active 2018-02 Kiersten incontinenc n 0-21 (Divina) e 10:00: [id number] Neuro confusion Neuro/Emot Active 2018-02 Kiersten present ion 0-21 (Divina) 10:00: [id number] Neuro impaired Neuro/Emot Active 2018-02 Kiersten decision-ma ion 0-21 (Divina) adolfo 10:00: [id number] Neuro memory Neuro/Emot Active 2018-02 Kiersten deficit ion 0-21 (Divina) needing 10:00: Sears supervision [id number] Activity ADL Activity Active 2018-02 Kiersten assistance 0-21 (Divina) required 10:00: [id number] Activity self-care Activity Active 2018-02 Kiersten deficit 0-21 (Divina) 10:00: [id number] Safety fall risk Safety Active 2018-02 Kiersten factor 0-21 (Divina) present 10:00: Sears [id number] Safety cannot be Safety Active 2018-02 Kiersten left alone 0-21 (Divina) 10:00: Sears [id number] Safety risk for Safety Active 2018-02 Kiersten hospitaliza 0-21 (Divina) tion 10:00: Sears [id number] Medication oral med Meds Active 2018-02 Kiersten assistance 0-21 (Divina) required 10:00: Sears [id number] Musculoskel transfer Musculoske Active 2018-02 Kiersten etal assistance letal 0-21 (Divina) required 10:00: Sears [id number] Musculoskel requires Musculoske Active 2018-02 Kiersten etal human letal 0-21 (Divina) assist to 10:00: Sears leave home [id number] Nutrition nutritional Nutrition Active 2018-02 Frank restriction 0-21 Anguish s 13:09: [id number] Safety structural Safety Active 2018-02 Frank barriers 0-21 Anguish present 13:09: [id number] Safety can be left Safety Active 2018-02 Frank alone for 0-21 Anguish only short 13:09: [id number] periods 00 Bed mobility/tr PT/OT: Bed Active 2018-02 Frank Mobility/Tr ansfer Mobility/T 0-21 Anguish ansfer device ransfer 13:09: [id number] present 00 Bed transfer PT/OT: Bed Active 2018-02 Frank Mobility/Tr deficit: Mobility/T 0-21 Anguish ansfer sit/stand ransfer 13:09: [id number] 00 Bed transfer PT/OT: Bed Active 2018-02 Frank Mobility/Tr deficit: Mobility/T 0-21 Anguish ansfer toilet/comm ransfer 13:09: [id number] ode 00 Bed transfer PT/OT: Bed Active 2018-02 Frank Mobility/Tr deficit: Mobility/T 0-21 Anguish ansfer shower/tub ransfer 13:09: [id number] 00 Bed bed PT/OT: Bed Active 2018-02 Frank Mobility/Tr mobility Mobility/T 0-21 Anguish ansfer deficit ransfer 13:09: [id number] 00 Balance/End balance/cosmetic account coordinator PT/OT: Active 2018-02 Frank urance rdination Balance/En 0-21 Anguish deficit durance 13:09: [id number] 00 Balance/End endurance PT/OT: Active 2018-02 Frank bentley deficit Balance/En 0-21 Anguish durance 13:09: [id number] 00 Gait/Locomo gait PT/OT: Active 2018-02 Frank tion assistive Gait/Locom 0-21 Anguish problems device otion 13:09: [id number] present 00 Gait/Locomo gait PT/OT: Active 2018-02 Frank tion deficit Gait/Locom 0-21 Anguish problems otion 13:09: [id number] 00 Spoken Comp non-verbal ST: Spoken Active 2018-02 Yara comm Comp 0-31 Toi PULLING UNIT OPERATOR deficit 13:30: [id number] 00 Spoken Comp knowledge/s ST: Spoken Active 2018-02 Yara kill Comp 0-31 Toi PULLING UNIT OPERATOR deficit - 13:30: [id number] pt 00 Spoken Prod knowledge/s ST: Spoken Active 2018-02 Yara sharma Prod 0-31 Toi PULLING UNIT OPERATOR deficit - 13:30: [id number] pt [address]: Active 2018-02 Yara comm Cognition 0-31 Toi PULLING UNIT OPERATOR deficit 13:30: [id number] 00 Cognition knowledge/s ST: Active 2018-02 Yara kill Cognition 0-31 Toi PULLING UNIT OPERATOR deficit - 13:30: [id number] pt 00 Allergies, Adverse Reactions, Alerts Allergy [...] Observation Time Observation Value Comments SYSTOLIC mm[Hg] 2019-01-29 18:09:17 140 mm[Hg] mm[Hg] Method: Sit SYSTOLIC mm[Hg] 2018-12-12 18:08:29 132 mm[Hg] mm[Hg] Method: Stand DIASTOLIC mm[Hg] 2019-01-29 18:09:17 70 mm[Hg] mm[Hg] Method: Sit DIASTOLIC mm[Hg] 2018-12-12 18:08:29 80 mm[Hg] mm[Hg] Method: Stand PULSE 2019-01-29 18:09:17 65 /min /min RESP RATE 2018-12-12 18:08:29 16 /min /min TEMP 2019-01-29 18:09:17 97.5 [degF] Procedures This patient has no known procedures. Results This patient has no known results.
--- OUTSIDE RECORDS SUMMARY | 2019-02-04 09:55 | XMS REPORT ---
:1935 Author Organization [facility] Care Team Providers Name Role Phone Unavailable [...]
--- OUTSIDE RECORDS SUMMARY | 2019-02-04 09:55 | XMS REPORT ---
:1935 Author Organization [facility] Care Team Providers Name Role Phone Unavailable [...]
--- OUTSIDE RECORDS SUMMARY | 2019-02-04 09:55 | XMS REPORT ---
:1935 Author Organization [facility] Care Team Providers Name Role Phone Unavailable Unavailable Unavailable Problems Condition Condition Condition Status Onset Resolution Last Treating Comments Name Details Category Date Date Treatment Clinician Date Pain frequent Pain Mgmt Active 2018-02 Kiersten pain 0-21 (Divina) 10:00: [id number] Respiratory dyspnea Respirator Active 2018-02 Kiersten present y 0-21 (Divina) 10:00: [id number] Sensory learning Sensory Active 2018-02 Kiersten deficit 0-21 (Divina) 10:00: [id number] Integument skin Integument Active 2018-02 Kiersten integrity 0-21 (Divina) risk 10:00: [id number] Elimination urinary Eliminatio Active 2018-02 Kiersten incontinenc n 0-21 (Divina) e 10:00: [id number] Elimination bowel Eliminatio Active 2018-02 Kiersten incontinenc n 0-21 (Divina) e 10:00: [id number] Neuro confusion Neuro/Emot Active 2018-02 Kiersten present ion 0-21 (Divina) 10:00: [id number] Neuro impaired Neuro/Emot Active 2018-02 Kiersten decision-ma ion 0-21 (Divina) adolfo 10:00: [id number] Neuro memory Neuro/Emot Active 2018-02 Kiersten deficit ion 0-21 (Divina) needing 10:00: Sears supervision [id number] Activity ADL Activity Active 2018-02 Kiersten assistance 0-21 (Divina) required 10:00: [id number] Activity self-care Activity Active 2018-02 Kiersten deficit 0-21 (Divina) 10:00: [id number] Safety fall risk Safety Active 2018-02 Kiersten factor 0-21 (Divina) present 10:00: Sears [id number] Safety cannot be Safety Active 2018-02 Kiersten left alone 0-21 (Divina) 10:00: Sears [id number] Safety risk for Safety Active 2018-02 Kiersten hospitaliza 0-21 (Divina) tion 10:00: Sears [id number] Medication oral med Meds Active 2018-02 Kiersten assistance 0-21 (Divina) required 10:00: Sears [id number] Musculoskel transfer Musculoske Active 2018-02 Kiersten etal assistance letal 0-21 (Divina) required 10:00: Sears [id number] Musculoskel requires Musculoske Active 2018-02 Kiersten etal human letal 0-21 (Divina) assist to 10:00: Sears leave home [id number] Nutrition nutritional Nutrition Active 2018-02 Frank restriction 0-21 Anguish s 13:09: [id number] Safety structural Safety Active 2018-02 Frank barriers 0-21 Anguish present 13:09: [id number] 00 Safety can be left Safety Active 2018-02 Frank alone for 0-21 Anguish only short 13:09: [id number] periods 00 Bed mobility/tr PT/OT: Bed Active 2018-02 Frank Mobility/Tr ansfer Mobility/T 0-21 Anguish ansfer device ransfer 13:09: [id number] present 00 Bed transfer PT/OT: Bed Active 2018-02 Frank Mobility/Tr deficit: Mobility/T 0-21 Anguish ansfer sit/stand ransfer 13:09: [id number] 00 Bed transfer PT/OT: Bed Active 2018-02 Frank Mobility/Tr deficit: Mobility/T 0-21 Anguish ansfer toilet/comm ransfer 13:09: [id number] ode 00 Bed transfer PT/OT: Bed Active 2018-02 Frank Mobility/Tr deficit: Mobility/T 0-21 Anguish ansfer shower/tub ransfer 13:09: [id number] 00 Bed bed PT/OT: Bed Active 2018-02 Frank Mobility/Tr mobility Mobility/T 0-21 Anguish ansfer deficit ransfer 13:09: [id number] 00 Balance/End balance/cooperative education director PT/OT: Active 2018-02 Frank urance rdination Balance/En 0-21 Anguish deficit durance 13:09: [id number] 00 Balance/End endurance PT/OT: Active 2018-02 Frank bentley deficit Balance/En 0-21 Anguish durance 13:09: [id number] 00 Gait/Locomo gait PT/OT: Active 2018-02 Frank tion assistive Gait/Locom 0-21 Anguish problems device otion 13:09: [id number] present 00 Gait/Locomo gait PT/OT: Active 2018-02 Frank tion deficit Gait/Locom 0-21 Anguish problems otion 13:09: [id number] 00 Spoken Comp non-verbal ST: Spoken Active 2018-02 Yara comm Comp 0-31 Toi CORN PICKER deficit 13:30: [id number] 00 Spoken Comp knowledge/s ST: Spoken Active 2018-02 Yara kill Comp 0-31 Toi CORN PICKER deficit - 13:30: [id number] pt 00 Spoken Prod knowledge/s ST: Spoken Active 2018-02 Yara sharma Prod 0-31 Toi CORN PICKER deficit - 13:30: [id number] pt [address]: Active 2018-02 Yara comm Cognition 0-31 Toi CORN PICKER deficit 13:30: [id number] 00 Cognition knowledge/s ST: Active 2018-02 Yara kill Cognition 0-31 Toi CORN PICKER deficit - 13:30: [id number] pt 00 Allergies, Adverse Reactions, Alerts Allergy [...]
--- OUTSIDE RECORDS SUMMARY | 2019-02-04 09:55 | XMS REPORT ---
:1935 Author Organization [facility] Care Team Providers Name Role Phone Unavailable Unavailable Unavailable Problems Condition Condition Condition Status Onset Resolution Last Treating Comments Name Details Category Date Date Treatment Clinician Date Pain frequent Pain Mgmt Active 2018-02 Kiersten pain 0-21 (Divina) 10:00: [id number] Respiratory dyspnea Respirator Active 2018-02 Kiersten present y 0-21 (Divina) 10:00: [id number] Sensory learning Sensory Active 2018-02 Kiersten deficit 0-21 (Divina) 10:00: [id number] Integument skin Integument Active 2018-02 Kiersten integrity 0-21 (Divina) risk 10:00: [id number] Elimination urinary Eliminatio Active 2018-02 Kiersten incontinenc n 0-21 (Divina) e 10:00: [id number] Elimination bowel Eliminatio Active 2018-02 Kiersten incontinenc n 0-21 (Divina) e 10:00: [id number] Neuro confusion Neuro/Emot Active 2018-02 Kiersten present ion 0-21 (Divina) 10:00: [id number] Neuro impaired Neuro/Emot Active 2018-02 Kiersten decision-ma ion 0-21 (Divina) adolfo 10:00: [id number] Neuro memory Neuro/Emot Active 2018-02 Kiersten deficit ion 0-21 (Divina) needing 10:00: Sears supervision [id number] Activity ADL Activity Active 2018-02 Kiersten assistance 0-21 (Divina) required 10:00: [id number] Activity self-care Activity Active 2018-02 Kiersten deficit 0-21 (Divina) 10:00: [id number] Safety fall risk Safety Active 2018-02 Kiersten factor 0-21 (Divina) present 10:00: Sears [id number] Safety cannot be Safety Active 2018-02 Kiersten left alone 0-21 (Divina) 10:00: Sears [id number] Safety risk for Safety Active 2018-02 Kiersten hospitaliza 0-21 (Divina) tion 10:00: Sears [id number] Medication oral med Meds Active 2018-02 Kiersten assistance 0-21 (Divina) required 10:00: Sears [id number] Musculoskel transfer Musculoske Active 2018-02 Kiersten etal assistance letal 0-21 (Divina) required 10:00: Sears [id number] Musculoskel requires Musculoske Active 2018-02 Kiersten etal human letal 0-21 (Divina) assist to 10:00: Sears leave home [id number] Nutrition nutritional Nutrition Active 2018-02 Frank restriction 0-21 Anguish s 13:09: [id number] 00 Safety structural Safety Active 2018-02 Frank barriers 0-21 Anguish present 13:09: [id number] 00 Safety can be left Safety Active 2018-02 Frank alone for 0-21 Anguish only short 13:09: [id number] periods 00 Bed mobility/tr PT/OT: Bed Active 2018-02 Frank Mobility/Tr ansfer Mobility/T 0-21 Anguish ansfer device ransfer 13:09: [id number] present 00 Bed transfer PT/OT: Bed Active 2018-02 Frank Mobility/Tr deficit: Mobility/T 0-21 Anguish ansfer sit/stand ransfer 13:09: [id number] 00 Bed transfer PT/OT: Bed Active 2018-02 Frank Mobility/Tr deficit: Mobility/T 0-21 Anguish ansfer toilet/comm ransfer 13:09: [id number] ode 00 Bed transfer PT/OT: Bed Active 2018-02 Frank Mobility/Tr deficit: Mobility/T 0-21 Anguish ansfer shower/tub ransfer 13:09: [id number] 00 Bed bed PT/OT: Bed Active 2018-02 Frank Mobility/Tr mobility Mobility/T 0-21 Anguish ansfer deficit ransfer 13:09: [id number] 00 Balance/End balance/operating room coordinator PT/OT: Active 2018-02 Frank urance rdination Balance/En 0-21 Anguish deficit durance 13:09: [id number] 00 Balance/End endurance PT/OT: Active 2018-02 Frank bentley deficit Balance/En 0-21 Anguish durance 13:09: [id number] 00 Gait/Locomo gait PT/OT: Active 2018-02 Frank tion assistive Gait/Locom 0-21 Anguish problems device otion 13:09: [id number] present 00 Gait/Locomo gait PT/OT: Active 2018-02 Frank tion deficit Gait/Locom 0-21 Anguish problems otion 13:09: [id number] 00 Spoken Comp non-verbal ST: Spoken Active 2018-02 Yara comm Comp 0-31 Toi GUEST EXPERIENCE MANAGER deficit 13:30: [id number] 00 Spoken Comp knowledge/s ST: Spoken Active 2018-02 Yara kill Comp 0-31 Toi GUEST EXPERIENCE MANAGER deficit - 13:30: [id number] pt 00 Spoken Prod knowledge/s ST: Spoken Active 2018-02 Yara sharma Prod 0-31 Toi GUEST EXPERIENCE MANAGER deficit - 13:30: [id number] pt [address]: Active 2018-02 Yara comm Cognition 0-31 Toi GUEST EXPERIENCE MANAGER deficit 13:30: [id number] 00 Cognition knowledge/s ST: Active 2018-02 Yara kill Cognition 0-31 Toi GUEST EXPERIENCE MANAGER deficit - 13:30: [id number] pt 00 Allergies, Adverse Reactions, Alerts Allergy [...] 2018-12-12 18:08:29 80 mm[Hg] mm[Hg] Method: Stand RESP RATE 2018-12-12 18:08:29 16 /min /min TEMP 2019-01-28 18:09:16 98.4 [degF] Procedures This patient has no known procedures. Results This patient has no known results.
--- OUTSIDE RECORDS SUMMARY | 2019-02-04 09:55 | XMS REPORT ---
:1935 Author Organization [facility] Care Team Providers Name Role Phone Unavailable Unavailable Unavailable Problems Condition Condition Condition Status Onset Resolution Last Treating Comments Name Details Category Date Date Treatment Clinician Date Pain frequent Pain Mgmt Active 2018-02 Kiersten pain 0-21 (Divina) 10:00: [id number] Respiratory dyspnea Respirator Active 2018-02 Kiersten present y 0-21 (Divina) 10:00: [id number] Sensory learning Sensory Active 2018-02 Kiersten deficit 0-21 (Divina) 10:00: [id number] Integument skin Integument Active 2018-02 Kiersten integrity 0-21 (Divina) risk 10:00: [id number] Elimination urinary Eliminatio Active 2018-02 Kiersten incontinenc n 0-21 (Divina) e 10:00: [id number] Elimination bowel Eliminatio Active 2018-02 Kiersten incontinenc n 0-21 (Divina) e 10:00: [id number] Neuro confusion Neuro/Emot Active 2018-02 Kiersten present ion 0-21 (Divina) 10:00: [id number] Neuro impaired Neuro/Emot Active 2018-02 Kiersten decision-ma ion 0-21 (Divina) adolfo 10:00: [id number] Neuro memory Neuro/Emot Active 2018-02 Kiersten deficit ion 0-21 (Divina) needing 10:00: Sears supervision [id number] Activity ADL Activity Active 2018-02 Kiersten assistance 0-21 (Divina) required 10:00: [id number] Activity self-care Activity Active 2018-02 Kiersten deficit 0-21 (Divina) 10:00: [id number] Safety fall risk Safety Active 2018-02 Kiersten factor 0-21 (Divina) present 10:00: Sears [id number] Safety cannot be Safety Active 2018-02 Kiersten left alone 0-21 (Divina) 10:00: Sears [id number] Safety risk for Safety Active 2018-02 Kiersten hospitaliza 0-21 (Divina) tion 10:00: Sears [id number] Medication oral med Meds Active 2018-02 Kiersten assistance 0-21 (Divina) required 10:00: Sears [id number] Musculoskel transfer Musculoske Active 2018-02 Kiersten etal assistance letal 0-21 (Divina) required 10:00: Sears [id number] Musculoskel requires Musculoske Active 2018-02 Kiersten etal human letal 0-21 (Divina) assist to 10:00: Sears leave home [id number] Nutrition nutritional Nutrition Active 2018-02 Frank restriction 0-21 Anguish s 13:09: [id number] 00 Safety structural Safety Active 2018-02 Frank barriers 0-21 Anguish present 13:09: [id number] 00 Safety can be left Safety Active 2018-02 Frank alone for 0-21 Anguish only short 13:09: [id number] periods 00 Bed mobility/tr PT/OT: Bed Active 2018-02 Frank Mobility/Tr ansfer Mobility/T 0-21 Anguish ansfer device ransfer 13:09: [id number] present 00 Bed transfer PT/OT: Bed Active 2018-02 Frank Mobility/Tr deficit: Mobility/T 0-21 Anguish ansfer sit/stand ransfer 13:09: [id number] 00 Bed transfer PT/OT: Bed Active 2018-02 Frank Mobility/Tr deficit: Mobility/T 0-21 Anguish ansfer toilet/comm ransfer 13:09: [id number] ode 00 Bed transfer PT/OT: Bed Active 2018-02 Frank Mobility/Tr deficit: Mobility/T 0-21 Anguish ansfer shower/tub ransfer 13:09: [id number] 00 Bed bed PT/OT: Bed Active 2018-02 Frank Mobility/Tr mobility Mobility/T 0-21 Anguish ansfer deficit ransfer 13:09: [id number] 00 Balance/End balance/dietary cook PT/OT: Active 2018-02 Frank urance rdination Balance/En 0-21 Anguish deficit durance 13:09: [id number] 00 Balance/End endurance PT/OT: Active 2018-02 Frank bentley deficit Balance/En 0-21 Anguish durance 13:09: [id number] 00 Gait/Locomo gait PT/OT: Active 2018-02 Frank tion assistive Gait/Locom 0-21 Anguish problems device otion 13:09: [id number] present 00 Gait/Locomo gait PT/OT: Active 2018-02 Frank tion deficit Gait/Locom 0-21 Anguish problems otion 13:09: [id number] 00 Spoken Comp non-verbal ST: Spoken Active 2018-02 Yara comm Comp 0-31 Toi COMMUNITY HEALTH WORKER deficit 13:30: [id number] 00 Spoken Comp knowledge/s ST: Spoken Active 2018-02 Yara kill Comp 0-31 Toi COMMUNITY HEALTH WORKER deficit - 13:30: [id number] pt 00 Spoken Prod knowledge/s ST: Spoken Active 2018-02 Yara sharma Prod 0-31 Toi COMMUNITY HEALTH WORKER deficit - 13:30: [id number] pt [address]: Active 2018-02 Yara comm Cognition 0-31 Toi COMMUNITY HEALTH WORKER deficit 13:30: [id number] 00 Cognition knowledge/s ST: Active 2018-02 Yara kill Cognition 0-31 Toi COMMUNITY HEALTH WORKER deficit - 13:30: [id number] pt 00 Allergies, Adverse Reactions, Alerts Allergy [...]
--- OUTSIDE RECORDS SUMMARY | 2019-02-04 09:55 | XMS REPORT ---
:1935 Author Organization [facility] Care Team Providers Name Role Phone Unavailable [...]
--- OUTSIDE RECORDS SUMMARY | 2019-02-04 09:55 | XMS REPORT ---
:1935 Author Organization [facility] Care Team Providers Name Role Phone Unavailable Unavailable Unavailable Problems Condition Condition Condition Status Onset Resolution Last Treating Comments Name Details Category Date Date Treatment Clinician Date Pain frequent Pain Mgmt Active 2018-02 Kiersten pain 0-21 (Divina) 10:00: [id number] Respiratory dyspnea Respirator Active 2018-02 Kiersten present y 0-21 (Divina) 10:00: [id number] Sensory learning Sensory Active 2018-02 Kiersten deficit 0-21 (Divina) 10:00: [id number] Integument skin Integument Active 2018-02 Kiersten integrity 0-21 (Divina) risk 10:00: [id number] Elimination urinary Eliminatio Active 2018-02 Kiersten incontinenc n 0-21 (Divina) e 10:00: [id number] Elimination bowel Eliminatio Active 2018-02 Kiersten incontinenc n 0-21 (Divina) e 10:00: [id number] Neuro confusion Neuro/Emot Active 2018-02 Kiersten present ion 0-21 (Divina) 10:00: [id number] Neuro impaired Neuro/Emot Active 2018-02 Kiersten decision-ma ion 0-21 (Divina) adolfo 10:00: [id number] Neuro memory Neuro/Emot Active 2018-02 Kiersten deficit ion 0-21 (Divina) needing 10:00: Sears supervision [id number] Activity ADL Activity Active 2018-02 Kiersten assistance 0-21 (Divina) required 10:00: [id number] Activity self-care Activity Active 2018-02 Kiersten deficit 0-21 (Divina) 10:00: [id number] Safety fall risk Safety Active 2018-02 Kiersten factor 0-21 (Divina) present 10:00: Sears [id number] Safety cannot be Safety Active 2018-02 Kiersten left alone 0-21 (Divina) 10:00: Sears [id number] Safety risk for Safety Active 2018-02 Kiersten hospitaliza 0-21 (Divina) tion 10:00: Sears [id number] Medication oral med Meds Active 2018-02 Kiersten assistance 0-21 (Divina) required 10:00: Sears [id number] Musculoskel transfer Musculoske Active 2018-02 Kiersten etal assistance letal 0-21 (Divina) required 10:00: Sears [id number] Musculoskel requires Musculoske Active 2018-02 Kiersten etal human letal 0-21 (Divina) assist to 10:00: Sears leave home [id number] Nutrition nutritional Nutrition Active 2018-02 Frank restriction 0-21 Anguish s 13:09: [id number] Safety structural Safety Active 2018-02 Frank barriers 0-21 Anguish present 13:09: [id number] Safety can be left Safety Active 2018-02 Frank alone for 0-21 Anguish only short 13:09: [id number] periods 00 Bed mobility/tr PT/OT: Bed Active 2018-02 Frank Mobility/Tr ansfer Mobility/T 0-21 Anguish ansfer device ransfer 13:09: [id number] present 00 Bed transfer PT/OT: Bed Active 2018-02 Frank Mobility/Tr deficit: Mobility/T 0-21 Anguish ansfer sit/stand ransfer 13:09: [id number] Bed transfer PT/OT: Bed Active 2018-02 Frank Mobility/Tr deficit: Mobility/T 0-21 Anguish ansfer toilet/comm ransfer 13:09: [id number] ode 00 Bed transfer PT/OT: Bed Active 2018-02 Frank Mobility/Tr deficit: Mobility/T 0-21 Anguish ansfer shower/tub ransfer 13:09: [id number] 00 Bed bed PT/OT: Bed Active 2018-02 Frank Mobility/Tr mobility Mobility/T 0-21 Anguish ansfer deficit ransfer 13:09: [id number] 00 Balance/End balance/cooker helper PT/OT: Active 2018-02 Frank urance rdination Balance/En 0-21 Anguish deficit durance 13:09: [id number] 00 Balance/End endurance PT/OT: Active 2018-02 Frank bentley deficit Balance/En 0-21 Anguish durance 13:09: [id number] 00 Gait/Locomo gait PT/OT: Active 2018-02 Frank tion assistive Gait/Locom 0-21 Anguish problems device otion 13:09: [id number] present 00 Gait/Locomo gait PT/OT: Active 2018-02 Frank tion deficit Gait/Locom 0-21 Anguish problems otion 13:09: [id number] 00 Spoken Comp non-verbal ST: Spoken Active 2018-02 Yara comm Comp 0-31 Toi VIDEO NEWS EDITOR deficit 13:30: [id number] 00 Spoken Comp knowledge/s ST: Spoken Active 2018-02 Yara kill Comp 0-31 Toi VIDEO NEWS EDITOR deficit - 13:30: [id number] pt 00 Spoken Prod knowledge/s ST: Spoken Active 2018-02 Yara sharma Prod 0-31 Toi VIDEO NEWS EDITOR deficit - 13:30: [id number] pt [address]: Active 2018-02 Yara comm Cognition 0-31 Toi VIDEO NEWS EDITOR deficit 13:30: [id number] 00 Cognition knowledge/s ST: Active 2018-02 Yara kill Cognition 0-31 Toi VIDEO NEWS EDITOR deficit - 13:30: [id number] pt 00 Allergies, Adverse Reactions, Alerts Allergy [...]
--- OUTSIDE RECORDS SUMMARY | 2019-02-04 09:55 | XMS REPORT ---
:1935 Author Organization [facility] Care Team Providers Name Role Phone Unavailable [...]
--- OUTSIDE RECORDS SUMMARY | 2019-02-04 09:55 | XMS REPORT ---
:1935 Author Organization [facility] Care Team Providers Name Role Phone Unavailable [...]
--- OUTSIDE RECORDS SUMMARY | 2019-02-04 09:56 | XMS REPORT ---
:1935 Author Organization [facility] Care Team Providers Name Role Phone Unavailable Unavailable Unavailable Problems Condition Condition Condition Status Onset Resolution Last Treating Comments Name Details Category Date Date Treatment Clinician Date Pain frequent Pain Mgmt Active 2018-02 Kiersten pain 0-21 (Divina) 10:00: [id number] Respiratory dyspnea Respirator Active 2018-02 Kiersten present y 0-21 (Divina) 10:00: [id number] Sensory learning Sensory Active 2018-02 Kiersten deficit 0-21 (Divina) 10:00: [id number] Integument skin Integument Active 2018-02 Kiersten integrity 0-21 (Divina) risk 10:00: [id number] Elimination urinary Eliminatio Active 2018-02 Kiersten incontinenc n 0-21 (Divina) e 10:00: [id number] Elimination bowel Eliminatio Active 2018-02 Kiersten incontinenc n 0-21 (Divina) e 10:00: [id number] Neuro confusion Neuro/Emot Active 2018-02 Kiersten present ion 0-21 (Divina) 10:00: [id number] Neuro impaired Neuro/Emot Active 2018-02 Kiersten decision-ma ion 0-21 (Divina) adolfo 10:00: [id number] Neuro memory Neuro/Emot Active 2018-02 Kiersten deficit ion 0-21 (Divina) needing 10:00: Sears supervision [id number] Activity ADL Activity Active 2018-02 Kiersten assistance 0-21 (Divina) required 10:00: [id number] Activity self-care Activity Active 2018-02 Kiersten deficit 0-21 (Divina) 10:00: [id number] Safety fall risk Safety Active 2018-02 Kiersten factor 0-21 (Divina) present 10:00: Sears [id number] Safety cannot be Safety Active 2018-02 Kiersten left alone 0-21 (Divina) 10:00: Esars [id number] Safety risk for Safety Active 2018-02 Kiersten hospitaliza 0-21 (Divina) tion 10:00: Sears [id number] Medication oral med Meds Active 2018-02 Kiersten assistance 0-21 (Divina) required 10:00: Sears [id number] Musculoskel transfer Musculoske Active 2018-02 Kiersten etal assistance letal 0-21 (Divina) required 10:00: Sears [id number] Musculoskel requires Musculoske Active 2018-02 Kiersten etal human letal 0-21 (Divina) assist to 10:00: Sears leave home [id number] Nutrition nutritional Nutrition Active 2018-02 Frank restriction 0-21 Anguish s 13:09: [id number] Safety structural Safety Active 2018-02 Frank barriers 0-21 Anguish present 13:09: [id number] 00 Safety can be left Safety Active 2018-02 Frank alone for 0-21 Anguish only short 13:09: [id number] periods 00 Bed mobility/tr PT/OT: Bed Active 2018-02 Frank Mobility/Tr ansfer Mobility/T 0-21 Anguish ansfer device ransfer 13:09: [id number] present 00 Bed transfer PT/OT: Bed Active 2018-02 Frank Mobility/Tr deficit: Mobility/T 0-21 Anguish ansfer sit/stand ransfer 13:09: [id number] 00 Bed transfer PT/OT: Bed Active 2018-02 Frank Mobility/Tr deficit: Mobility/T 0-21 Anguish ansfer toilet/comm ransfer 13:09: [id number] ode 00 Bed transfer PT/OT: Bed Active 2018-02 Frank Mobility/Tr deficit: Mobility/T 0-21 Anguish ansfer shower/tub ransfer 13:09: [id number] 00 Bed bed PT/OT: Bed Active 2018-02 Frank Mobility/Tr mobility Mobility/T 0-21 Anguish ansfer deficit ransfer 13:09: [id number] 00 Balance/End balance/cook chief PT/OT: Active 2018-02 Frank urance rdination Balance/En 0-21 Anguish deficit durance 13:09: [id number] 00 Balance/End endurance PT/OT: Active 2018-02 Frank bentley deficit Balance/En 0-21 Anguish durance 13:09: [id number] 00 Gait/Locomo gait PT/OT: Active 2018-02 Frank tion assistive Gait/Locom 0-21 Anguish problems device otion 13:09: [id number] present 00 Gait/Locomo gait PT/OT: Active 2018-02 Frank tion deficit Gait/Locom 0-21 Anguish problems otion 13:09: [id number] 00 Spoken Comp non-verbal ST: Spoken Active 2018-02 Yara comm Comp 0-31 Toi CAR HOSTLER deficit 13:30: [id number] 00 Spoken Comp knowledge/s ST: Spoken Active 2018-02 Yara kill Comp 0-31 Toi CAR HOSTLER deficit - 13:30: [id number] pt 00 Spoken Prod knowledge/s ST: Spoken Active 2018-02 Yara sharma Prod 0-31 Toi CAR HOSTLER deficit - 13:30: [id number] pt [address]: Active 2018-02 Yara comm Cognition 0-31 Toi CAR HOSTLER deficit 13:30: [id number] Cognition knowledge/s ST: Active 2018-02 Yara kill Cognition 0-31 Toi CAR HOSTLER deficit - 13:30: [id number] pt 00 Allergies, Adverse Reactions, Alerts Allergy [...] tablet mcg tablet spironolact spironolact 2018-02 Yes Luiisto Unknown Unknown one 25 mg one 25 [...] Observation Time Observation Value Comments SYSTOLIC mm[Hg] 2019-01-22 18:09:10 104 mm[Hg] mm[Hg] Method: Sit SYSTOLIC mm[Hg] 2018-12-12 18:08:29 132 mm[Hg] mm[Hg] Method: Stand DIASTOLIC mm[Hg] 2019-01-22 18:09:10 70 mm[Hg] mm[Hg] Method: Sit DIASTOLIC mm[Hg] 2018-12-12 18:08:29 80 mm[Hg] mm[Hg] Method: Stand PULSE 2019-01-22 18:09:10 80 /min /min RESP RATE 2018-12-12 18:08:29 16 /min /min TEMP 2019-01-22 18:09:10 97.5 [degF] Procedures This patient has no known procedures. Results This patient has no known results.
--- OUTSIDE RECORDS SUMMARY | 2019-02-04 09:56 | XMS REPORT ---
:1935 Author Organization [facility] Care Team Providers Name Role Phone Unavailable [...]
--- OUTSIDE RECORDS SUMMARY | 2019-02-04 09:56 | XMS REPORT ---
:1935 Author Organization [facility] Care Team Providers Name Role Phone Unavailable Unavailable Unavailable Problems Condition Condition Condition Status Onset Resolution Last Treating Comments Name Details Category Date Date Treatment Clinician Date Pain frequent Pain Mgmt Active 2018-02 Kiersten pain 0-21 (Divina) 10:00: [id number] Respiratory dyspnea Respirator Active 2018-02 Kiersten present y 0-21 (Divina) 10:00: [id number] Sensory learning Sensory Active 2018-02 Kiersten deficit 0-21 (Divina) 10:00: [id number] Integument skin Integument Active 2018-02 Kiersten integrity 0-21 (Divina) risk 10:00: [id number] Elimination urinary Eliminatio Active 2018-02 Kiersten incontinenc n 0-21 (Divina) e 10:00: [id number] Elimination bowel Eliminatio Active 2018-02 Kiersten incontinenc n 0-21 (Divina) e 10:00: [id number] Neuro confusion Neuro/Emot Active 2018-02 Kiersten present ion 0-21 (Divina) 10:00: [id number] Neuro impaired Neuro/Emot Active 2018-02 Kiersten decision-ma ion 0-21 (Divina) adolfo 10:00: [id number] Neuro memory Neuro/Emot Active 2018-02 Kiersten deficit ion 0-21 (Divina) needing 10:00: Sears supervision [id number] Activity ADL Activity Active 2018-02 Kiersten assistance 0-21 (Divina) required 10:00: [id number] Activity self-care Activity Active 2018-02 Kiersten deficit 0-21 (Divina) 10:00: [id number] Safety fall risk Safety Active 2018-02 Kiersten factor 0-21 (Divina) present 10:00: Sears [id number] Safety cannot be Safety Active 2018-02 Kiersten left alone 0-21 (Divina) 10:00: Sears [id number] Safety risk for Safety Active 2018-02 Kiersten hospitaliza 0-21 (Divina) tion 10:00: Sears [id number] Medication oral med Meds Active 2018-02 Kiersten assistance 0-21 (Divina) required 10:00: Sears [id number] Musculoskel transfer Musculoske Active 2018-02 Kiersten etal assistance letal 0-21 (Divina) required 10:00: Sears [id number] Musculoskel requires Musculoske Active 2018-02 Kiersten etal human letal 0-21 (Divina) assist to 10:00: Sears leave home [id number] Nutrition nutritional Nutrition Active 2018-02 Frank restriction 0-21 Anguish s 13:09: [id number] Safety structural Safety Active 2018-02 Frank barriers 0-21 Anguish present 13:09: [id number] Safety can be left Safety Active 2018-02 Frank alone for 0-21 Anguish only short 13:09: [id number] periods 00 Bed mobility/tr PT/OT: Bed Active 2018-02 Frank Mobility/Tr ansfer Mobility/T 0-21 Anguish ansfer device ransfer 13:09: [id number] present 00 Bed transfer PT/OT: Bed Active 2018-02 Frank Mobility/Tr deficit: Mobility/T 0-21 Anguish ansfer sit/stand ransfer 13:09: [id number] 00 Bed transfer PT/OT: Bed Active 2018-02 Frank Mobility/Tr deficit: Mobility/T 0-21 Anguish ansfer toilet/comm ransfer 13:09: [id number] ode 00 Bed transfer PT/OT: Bed Active 2018-02 Frank Mobility/Tr deficit: Mobility/T 0-21 Anguish ansfer shower/tub ransfer 13:09: [id number] 00 Bed bed PT/OT: Bed Active 2018-02 Frank Mobility/Tr mobility Mobility/T 0-21 Anguish ansfer deficit ransfer 13:09: [id number] 00 Balance/End balance/administrative assistant coordinator PT/OT: Active 2018-02 Frank urance rdination Balance/En 0-21 Anguish deficit durance 13:09: [id number] 00 Balance/End endurance PT/OT: Active 2018-02 Frank bentley deficit Balance/En 0-21 Anguish durance 13:09: [id number] 00 Gait/Locomo gait PT/OT: Active 2018-02 Frank tion assistive Gait/Locom 0-21 Anguish problems device otion 13:09: [id number] present 00 Gait/Locomo gait PT/OT: Active 2018-02 Frank tion deficit Gait/Locom 0-21 Anguish problems otion 13:09: [id number] 00 Spoken Comp non-verbal ST: Spoken Active 2018-02 Yara comm Comp 0-31 Toi NSH TEACHER deficit 13:30: [id number] 00 Spoken Comp knowledge/s ST: Spoken Active 2018-02 Yara kill Comp 0-31 Toi NSH TEACHER deficit - 13:30: [id number] pt 00 Spoken Prod knowledge/s ST: Spoken Active 2018-02 Yara sharma Prod 0-31 Toi NSH TEACHER deficit - 13:30: [id number] pt [address]: Active 2018-02 Yara comm Cognition 0-31 Toi NSH TEACHER deficit 13:30: [id number] 00 Cognition knowledge/s ST: Active 2018-02 Yara kill Cognition 0-31 Toi NSH TEACHER deficit - 13:30: [id number] pt 00 Allergies, Adverse Reactions, Alerts Allergy [...]
--- OUTSIDE RECORDS SUMMARY | 2019-02-04 09:56 | XMS REPORT ---
:1935 Author Organization [facility] Care Team Providers Name Role Phone Unavailable [...]
--- OUTSIDE RECORDS SUMMARY | 2019-02-04 09:56 | XMS REPORT ---
:1935 Author Organization [facility] [place] Care Team Providers Name Role Phone [...]
--- OUTSIDE RECORDS SUMMARY | 2019-02-04 09:56 | XMS REPORT ---
:1935 Author Organization [facility] [place] Care Team Providers Name Role Phone Unavailable [...]
--- OUTSIDE RECORDS SUMMARY | 2019-02-04 09:56 | XMS REPORT ---
:1935 Author Organization [facility] [place] Care Team Providers Name Role Phone Unavailable [...]
--- OUTSIDE RECORDS SUMMARY | 2019-02-04 09:56 | XMS REPORT ---
:1935 Author Organization [facility] Care Team Providers Name Role Phone Unavailable Unavailable Unavailable Problems Condition Condition Condition Status Onset Resolution Last Treating Comments Name Details Category Date Date Treatment Clinician Date Pain frequent Pain Mgmt Active 2018-02 Kiersten pain 0-21 (Divina) 10:00: [id number] Respiratory dyspnea Respirator Active 2018-02 Kiersten present y 0-21 (Divina) 10:00: [id number] Sensory learning Sensory Active 2018-02 Kiersten deficit 0-21 (Divina) 10:00: [id number] Integument skin Integument Active 2018-02 Kiersten integrity 0-21 (Divina) risk 10:00: [id number] Elimination urinary Eliminatio Active 2018-02 Kiersten incontinenc n 0-21 (Divina) e 10:00: [id number] Elimination bowel Eliminatio Active 2018-02 Kiersten incontinenc n 0-21 (Divina) e 10:00: [id number] Neuro confusion Neuro/Emot Active 2018-02 Kiersten present ion 0-21 (Divina) 10:00: [id number] Neuro impaired Neuro/Emot Active 2018-02 Kiersten decision-ma ion 0-21 (Divina) adolfo 10:00: [id number] Neuro memory Neuro/Emot Active 2018-02 Kiersten deficit ion 0-21 (Divina) needing 10:00: Sears supervision [id number] Activity ADL Activity Active 2018-02 Kiersten assistance 0-21 (Divina) required 10:00: [id number] Activity self-care Activity Active 2018-02 Kiersten deficit 0-21 (Divina) 10:00: [id number] Safety fall risk Safety Active 2018-02 Kiersten factor 0-21 (Divina) present 10:00: Sears [id number] Safety cannot be Safety Active 2018-02 Kiersten left alone 0-21 (Divina) 10:00: Sears [id number] Safety risk for Safety Active 2018-02 Kiersten hospitaliza 0-21 (Divina) tion 10:00: Sears [id number] Medication oral med Meds Active 2018-02 Kiersten assistance 0-21 (Divina) required 10:00: Sears [id number] Musculoskel transfer Musculoske Active 2018-02 Kiersten etal assistance letal 0-21 (Divina) required 10:00: Sears [id number] Musculoskel requires Musculoske Active 2018-02 Kiersten etal human letal 0-21 (Divina) assist to 10:00: Sears leave home [id number] Nutrition nutritional Nutrition Active 2018-02 Frank restriction 0-21 Anguish s 13:09: [id number] 00 Safety structural Safety Active 2018-02 Frank barriers 0-21 Anguish present 13:09: [id number] 00 Safety can be left Safety Active 2018-02 Frank alone for 0-21 Anguish only short 13:09: [id number] periods 00 Bed mobility/tr PT/OT: Bed Active 2018-02 Frank Mobility/Tr ansfer Mobility/T 0-21 Anguish ansfer device ransfer 13:09: [id number] present 00 Bed transfer PT/OT: Bed Active 2018-02 Frank Mobility/Tr deficit: Mobility/T 0-21 Anguish ansfer sit/stand ransfer 13:09: [id number] 00 Bed transfer PT/OT: Bed Active 2018-02 Frank Mobility/Tr deficit: Mobility/T 0-21 Anguish ansfer toilet/comm ransfer 13:09: [id number] ode 00 Bed transfer PT/OT: Bed Active 2018-02 Frank Mobility/Tr deficit: Mobility/T 0-21 Anguish ansfer shower/tub ransfer 13:09: [id number] 00 Bed bed PT/OT: Bed Active 2018-02 Frank Mobility/Tr mobility Mobility/T 0-21 Anguish ansfer deficit ransfer 13:09: [id number] 00 Balance/End balance/instructional technology coordinator PT/OT: Active 2018-02 Frank urance rdination Balance/En 0-21 Anguish deficit durance 13:09: [id number] 00 Balance/End endurance PT/OT: Active 2018-02 Frank bentley deficit Balance/En 0-21 Anguish durance 13:09: [id number] 00 Gait/Locomo gait PT/OT: Active 2018-02 Frank tion assistive Gait/Locom 0-21 Anguish problems device otion 13:09: [id number] present 00 Gait/Locomo gait PT/OT: Active 2018-02 Frank tion deficit Gait/Locom 0-21 Anguish problems otion 13:09: [id number] 00 Spoken Comp non-verbal ST: Spoken Active 2018-02 Yara comm Comp 0-31 Toi BANKRUPTCY ASSISTANT deficit 13:30: [id number] 00 Spoken Comp knowledge/s ST: Spoken Active 2018-02 Yara kill Comp 0-31 Toi BANKRUPTCY ASSISTANT deficit - 13:30: [id number] pt 00 Spoken Prod knowledge/s ST: Spoken Active 2018-02 Yara sharma Prod 0-31 Toi BANKRUPTCY ASSISTANT deficit - 13:30: [id number] pt [address]: Active 2018-02 Yara comm Cognition 0-31 Toi BANKRUPTCY ASSISTANT deficit 13:30: [id number] 00 Cognition knowledge/s ST: Active 2018-02 Yara kill Cognition 0-31 Toi BANKRUPTCY ASSISTANT deficit - 13:30: [id number] pt 00 Allergies, Adverse Reactions, Alerts Allergy [...] RATE 2018-12-12 18:08:29 16 /min /min TEMP 2019-01-23 18:09:11 98.6 [degF] Procedures This patient has no known procedures. Results This patient has no known results.
--- OUTSIDE RECORDS SUMMARY | 2019-02-04 09:56 | XMS REPORT ---
:1935 Author Organization [facility] Care Team Providers Name Role Phone Unavailable [...]
--- NOTE | 2019-02-04 10:16 | ED ---
Lower Extremity - HPI Summary HPI Summary: Patient is an 83-year-old male who presents to emergency department right hip/ leg pain since yesterday. Pt. resides at home with his . Hx of dementia. Pt. 's states yesterday pt. started to c/o right hip/pain yesterday. Pt. typically ambulated with a cane/walker. Pt. was able to bare weight on leg yesterday but today pt. unable to put weight on right leg. Pt.'s denies any falls or injuries. Hx of obtained from /family given pt.'s dementia. notes no recent illness, fever, abd. pain, cough, cp, urinary sxs, change in MS. Sxs are mild in severity. Walking exacerbates sxs. Rest improves sxs. - History of Current Complaint Chief Complaint: EDExtremityLower Stated Complaint: RIGHT HIP PAIN Time Seen by Provider: 02/04/19 10:03 Hx Obtained From: Family/Batch Tester Pain Intensity: 0 - Allergies/Home Medications Allergies/Adverse Reactions: Allergies Allergy/AdvReac Type Severity Reaction Status Date / Time donepezil Allergy Rash Verified 10/04/17 01:43 losartan Allergy Swelling Verified 10/04/17 01:43 Of Face,Lips,& Throat Home Medications: Home Medications Docusate CAP* [Colace Cap*] 100 mg PO DAILY PRN 02/04/19 [History Confirmed ] Nitrofurantoin Monohyd/M-Cryst [Macrobid 100 mg Capsule] 100 mg PO Q12H [History Confirmed 02/04/19] PMH/Surg Hx/FS Hx/Imm Hx Endocrine/Hematology History: Denies: Hx Diabetes, Hx Sickle Cell Disease, Hx Thyroid Disease Cardiovascular History: Reports: Hx Hypertension - ON MEDICATION TO CONTROL Respiratory History: Reports: Hx Seasonal Allergies Denies: Hx Asthma, Hx Chronic Obstructive Pulmonary Disease (COPD), Hx Pneumonia GI History: Reports: Hx Hiatal Hernia Denies: Hx Gastroesophageal Reflux Disease, Hx Ulcer History: Reports: Hx Benign Prostatic Hyperplasia Musculoskeletal History: Reports: Hx Arthritis - HANDS & LEGS Denies: Hx Osteoporosis Sensory History: Reports: Hx Contacts or Glasses, Hx Hearing Problem Denies: Hx Cataracts, Hx Glaucoma, Hx Hearing Aid Opthamlomology History: Reports: Hx Contacts or Glasses Denies: Hx Cataracts, Hx Glaucoma Neurological History: Reports: Hx Dementia Psychiatric History: Denies: Hx Autism, Hx Schizophrenia - Cancer History Cancer Type, Location and Year: Melanoma on back 1989, 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 APPY A CHILD. UMBILICAL [place]ERNIA[place] [facility] [place]ROS[place] LEFT [place] [place] CYST REMOVED FROM LEFT TESTICLE 2002[place] [place] RIGHT HEEL 2007 [facility] [place] Hx Anesthesia Reactions: No Infectious Disease History: Unable to Obtain/Confirm Infectious Disease History: Denies: Hx Hepatitis, Hx Human Immunodeficiency Virus (HIV), Traveled Outside the [place] in Last 30 Days - Family History Known Family History: Positive: Hypertension, Other - lung cancer - Social History Alcohol Use: Rare Alcohol Amount: 2 shots of whiskey mixed with water Hx Substance Use: No Substance Use Type: Reports: None Substance Use Comment - Amount & Last Used: unable to determine Hx Tobacco Use: Yes Smoking Status (MU): Former Smoker Type: Pipe Review of Systems Constitutional: Negative Negative: Fever Cardiovascular: Negative Respiratory: Negative Gastrointestinal: Negative Negative: Abdominal Pain Genitourinary: Negative Negative: dysuria Musculoskeletal: Negative Positive: Other - right leg pain Skin: Negative Negative: Rash Neurological: Negative Negative: Weakness, Paresthesia, Numbness All Other Systems Reviewed And Are Negative: No Physical Exam Triage Information Reviewed: Yes Vital Signs On Initial Exam: Initial Vitals Temp Pulse Resp BP Pulse Ox 98.1 F 76 18 137/81 95 02/04/19 09:50 02/04/19 09:50 02/04/19 09:50 02/04/19 09:50 02/04/19 09:50 Vital Signs Reviewed: Yes Appearance: Positive: Well-Appearing - Pt. sitting up in bed in NAD. Family present. Skin: Positive: Warm, Dry Head/Face: Positive: Normal Head/Face Inspection Eyes: Positive: Normal, EOMI Neck: Positive: Supple Respiratory/Lung Sounds: Positive: Clear to Auscultation, Breath Sounds Present Cardiovascular: Positive: Normal, RRR Abdomen Description: Positive: Other: - Abd. is soft and nontender throughout. Reducible umbilical hernia. Musculoskeletal: Positive: Other - +2 pedal pulses bilaterally. +1 pitting edema bilaterally. Full ROM of bilateral legs without reprodubicle pain. No edema, wounds, or erythema. Neurological: Positive: Normal, CN Intact II-III Psychiatric: Positive: Affect/Mood Appropriate Procedures - Sedation Patient Received Moderate/Deep Sedation with Procedure: No Diagnostics - Vital Signs Vital Signs Temp Pulse Resp BP Pulse Ox 02/04/19 10:00 78 94 02/04/19 09:59 73 137/81 94 02/04/19 09:56 87 95 02/04/19 09:50 98.1 F 76 18 137/81 95 - Laboratory Lab Statement: Any lab studies that have been ordered have been reviewed, and results considered in the medical decision making process. Lower Extremity Course/Dx - Course Course Of Treatment: Patient with right hip pain. He is afebrile well- appearing. Patient has no complaints on exam. No signs of infection or DVT on exam. X-rays of right hip and knee show arthritic changes without acute fracture dislocation, reading per radiology. Patient was able to ambulate around the ER with a walker without difficulty or complaints of pain. Suspect pain is secondary to arthritis. Advised family Tylenol for pain as directed. Close follow-up with PCP and return to the ER symptoms change or worsen. Family understands and agrees with plan. - Diagnoses Differential Diagnosis/HQI/PQRI: Positive: Contusion, Dislocation, Fracture ( Closed), Sprain, Strain Provider Diagnoses: Hip pain, Arthritis Discharge ED - Sign-Out/Discharge Documenting (check all that apply): Patient Departure - Discharge Plan Condition: Improved Disposition: HOME Patient Education Materials: Osteoarthritis (ED), Hip Pain (ED) Referrals: Karol Jorge MD [Primary Care Provider] - Additional Instructions: Schedule follow up appointment with PCP if pain persist Tylenol for pain as directed Return to ER if symptoms change or worsen - Billing Disposition and Condition Condition: IMPROVED Disposition: Home
[2019-02-04 11:47] VITALS: BP 117/84
== END 2019-02-04 11:46 | disposition home or self-care (01) ==
LOC: ED 09:50
DX: M25.551 Pain in right hip (principal); M85.88 Other specified disorders of bone density and structure, other site; M16.11 Unilateral primary osteoarthritis, right hip; M85.861 Other specified disorders of bone density and structure, right lower leg; M11.261 Other chondrocalcinosis, right knee; M17.11 Unilateral primary osteoarthritis, right knee; I70.201 Unspecified atherosclerosis of native arteries of extremities, right leg; F03.90 Unspecified dementia, unspecified severity, without behavioral disturbance, psychotic disturbance, mood disturbance, and anxiety; I10 Essential (primary) hypertension; Z88.8 Allergy status to other drugs, medicaments and biological substances; Z87.891 Personal history of nicotine dependence
CPT/HCPCS: 99282